=== PATIENT | female | born 1935 | race Caucasian/White ===

== ENCOUNTER 2016-10-21 07:39 | Day surgery (SDC) | payer MEDICARE, BC ==
[2016-10-21] MEDS ORDERED: Sodium Chloride 0.9% 10 ML Syringe FLUSH PRN (08:00)
[2016-10-21] MEDS ORDERED: Lactated Ringers 1,000 ML IV SCH (08:00)
[2016-10-21] MEDS ORDERED: fentaNYL 100 MCG/2 ML SDV ONE ×2 (08:38→09:04)
[2016-10-21] MEDS ORDERED: Midazolam 1 MG/ML 2 ML SDV ONE ×2 (08:39→09:04)
[2016-10-21] MEDS ORDERED: Propofol 200 MG/20 ML SDV ONE ×3 (08:40→09:04)
[2016-10-21] MEDS ORDERED: Lidocaine 2% 5 ML SDV ONE (09:04)
--- NOTE | 2016-10-21 09:06 | PCM.PN ---
- General Info Date of Service: 10/21/16 - Review of Systems Systems Review Comment:: 80-year-old female here for EGD and colonoscopy. She has a history of GERD and does chronically take omeprazole. She also has a history of colon polyps. It has been over 5 years since her last colonoscopy. She is medically stable to proceed today. I reviewed her recent history and physical and there is no significant change from that exam. I discussed the proposed upper and lower endoscopies with the patient. She understands the process and agrees to proceed accepting risks. - Patient Data Vitals - most recent: Last Vital Signs Temp 97.5 F 10/21/16 08:04 Pulse 75 10/21/16 08:04 Resp 20 10/21/16 08:04 BP 116/70 10/21/16 08:04 Pulse Ox 95 10/21/16 08:04 Weight - most recent: 50.349 kg Lab Results last 24 hrs: Laboratory Results - last 24 hr 10/21/16 Range/Units 08:31 POC Glucose 114 H (65-110) mg/dl Med Orders - Current: Current Medications Lactated Ringer's (Ringers, Lactated) 1,000 mls @ 70 mls/hr IV ASDIRECTED LINDA Last Admin: 10/21/16 08:33 Dose: 70 mls/hr Sodium Chloride (Saline Flush) 10 ml FLUSH ASDIRECTED PRN PRN Reason: Keep Vein Open Discontinued Medications Fentanyl (Sublimaze) Confirm Administered Dose 100 mcg .ROUTE .STK-MED ONE Stop: 10/21/16 08:39 Midazolam HCl (Versed 1 Mg/Ml) Confirm Administered Dose 2 mg .ROUTE .STK-MED ONE Stop: 10/21/16 08:40 Propofol (Diprivan 20 Ml) Confirm Administered Dose 200 mg .ROUTE .STK-MED ONE Stop: 10/21/16 08:41 Propofol (Diprivan 20 Ml) Confirm Administered Dose 200 mg .ROUTE .STK-MED ONE Stop: 10/21/16 08:41 - Problem List Review Problem List Initiated/Reviewed/Updated: Yes - Assessment Assessment:: GERD History of colon polyps - Plan Plan:: EGD and colonoscopy
--- NOTE | 2016-10-21 10:07 | PCM.OPNOTE ---
- General Post-Op/Procedure Note Date of Surgery/Procedure: 10/21/16 Operative Procedure(s): EGD with Biopsy and Colonoscopy with Polypectomy Findings: Mild reflux esophagitis at GE Jct Sigmoid Diverticulosis with tortuous colon Right colon polyps X2 Pre Op Diagnosis: GERD. History of Polyps Post-Op Diagnosis: Reflux Esophagitis. Diverticulosis. Colon Polyps Anesthesia Technique: [facility] [place] Primary Surgeon: Mayo Victoria Pathology: Biopsies of Gastric Antrum and Jct. Colon polyps X2 Output, Urine Amount: 0 EBL in mLs: 2 Complications: None Condition: Good
[2016-10-21 10:34] VITALS: BP 110/60
--- NOTE | 2016-10-21 15:06 | OR ---
Date of Procedure: 10/21/2016 PREOPERATIVE DIAGNOSES: 1. Gastroesophageal reflux disease. 2. History of colon polyps. POSTOPERATIVE DIAGNOSES: 1. Reflux esophagitis. 2. Diverticulosis. 3. Colon polyps. OPERATION PERFORMED: Esophagogastroduodenoscopy with biopsy and colonoscopy with polypectomy. INDICATIONS FOR SURGERY: This 80-year-old female has a known history of colon polyps and her last colonoscopy was over 5 years ago. She is referred for surveillance exam. She also has been having some symptoms of esophageal reflux. FINDINGS: On upper endoscopy, the patient has a mild degree of irritation at the GE junction with slightly irregularity of the Z-line. There was no exudate or ulceration seen. The gastric mucosa and duodenal mucosa otherwise appears normal as does the remainder of her esophagus. On colonoscopy, 2 polyps were noted on the right side of the colon. She has an 8 mm sessile polyp noted at the hepatic flexure and 1 cm sessile polyp noted at the mid transverse colon. The patient also has diverticulosis of the sigmoid colon, this does not appear acutely inflamed, however, there is significant tortuosity through this area. PROCEDURE IN DETAIL: The patient was taken to the operating room. She was given intravenous sedation. With her in the left lateral decubitus position, the esophagus is intubated via a mouth guard under direct visualization. The scope was then advanced through the esophagus, stomach, and into the duodenum where examination to the 3rd portion was performed. Full examination of the duodenum is carried out and the visualized portion appeared normal. The scope was withdrawn back into the stomach where full examination, including retroflexed examination of the fundus was performed. Biopsies of the antrum were taken to rule out H. pylori. The GE junction was then carefully examined and biopsies of the GE junction were taken because of the slight irregularity noted here and the patient's symptoms. The remainder of the esophagus was then examined as the scope was withdrawn and no other abnormalities of the esophagus were seen. Attention was then turned to colonoscopy. Digital rectal exam was performed showing no rectal masses. The Olympus colonoscope was inserted into the rectum. Retroflexed examination of the rectal canal was performed. The scope was then carefully advanced under direct visualization through the entire length of the colon until the cecum was reached. This did require some hand pressure at the end to safely reach the cecum. It was also somewhat difficult to traverse the sigmoid region because of the tortuosity of the colon and diverticular disease, but it appeared that the cecum was reached safely without any evidence of colon injury. The normal internal cecal anatomy was identified including the appendiceal orifice and ileocecal valve. The light was also noted to transilluminate the abdominal wall in the right lower quadrant. After examining the cecum, the scope was slowly withdrawn sequentially re-examining the colonic segments. In the hepatic flexure region, the above-described polyp was identified and it was removed with a cautery snare and retrieved. Upon further withdrawal of the scope, the other above-described polyp was noted in the transverse colon. This was removed piecemeal with cautery snare with a small amount of cautery being used to destroy any residual bit of the polyp that was not removed by the snare. It appeared that both polyps were completely removed with the procedure today. The scope was then slowly withdrawn and the remainder of the colon and rectum were carefully examined. After the examination had been completed and with no sign of any complicating process, the scope was removed and the patient was taken from the operating room in satisfactory condition. ESTIMATED BLOOD LOSS: Minimal. COMPLICATIONS: None. PROGNOSIS: Good. RUBÉN Victoria MD /[id number] MTDNichole
== END 2016-10-21 11:15 | disposition home or self-care (01) ==
LOC: LL.SDS 07:39
PROVIDERS: ATTEND Surgery
PROC: 0DB48ZZ Excision of Esophagogastric Junction, Via Natural or Artificial Opening Endoscopic (ICD-10-PCS; principal; 2016-10-21)
PROC: 0DBL8ZZ Excision of Transverse Colon, Via Natural or Artificial Opening Endoscopic (ICD-10-PCS; 2016-10-21)
PROC: 0DBK8ZZ Excision of Ascending Colon, Via Natural or Artificial Opening Endoscopic (ICD-10-PCS; 2016-10-21)
DX: K21.0 Gastro-esophageal reflux disease with esophagitis (principal); D12.2 Benign neoplasm of ascending colon; D12.3 Benign neoplasm of transverse colon; K57.30 Diverticulosis of large intestine without perforation or abscess without bleeding; Z80.0 Family history of malignant neoplasm of digestive organs; I10 Essential (primary) hypertension; E11.9 Type 2 diabetes mellitus without complications; E11.40 Type 2 diabetes mellitus with diabetic neuropathy, unspecified; K86.1 Other chronic pancreatitis; E03.9 Hypothyroidism, unspecified; Z79.899 Other long term (current) drug therapy
CPT/HCPCS: 43239; 45385; 82962; J2250; J2704; J3010; J7120; 00740; 88305

== ENCOUNTER 2018-09-03 10:05 | Emergency (ER) | payer MEDICARE, BC ==
[2018-09-03 10:20] VITALS: BP 163/80
[2018-09-03 10:51] LABS: CHLORIDE,CL 100 mmol/L (98-107); SODIUM,NA 134 mmol/L (136-145)
[2018-09-03] MEDS ORDERED: Ondansetron 4 MG Tab.DIS PO ONE (11:06)
--- NOTE | 2018-09-03 12:08 | EDM.PDOC ---
ED HPI GENERAL MEDICAL PROBLEM - General Chief Complaint: General Stated Complaint: Abdominal Pain, Hx Pancreatitis, Dx Shingles Time Seen by Provider: 09/03/18 10:47 Source of Information: Reports: Patient History Limitations: Reports: No Limitations - History of Present Illness INITIAL COMMENTS - FREE TEXT/NARRATIVE: Patient comes to ER this morning due to abdominal pain. Located near epigastric area. Threw up her antiviral medication this morning. Not wanting to eat or drink much. Diagnosed with shingles recently. Broke out on left back. Says that it feels like pancreatitis. Has had multiple episodes of pancreatitis in past. Had stents placed in pancreas by [place] "years ago". No fevers/chills. No bowel changes. No other acute changes reported by patient. Middle Abdomen Pain Score (Numeric/FACES): 9 - Related Data Allergies Allergy/AdvReac Type Severity Reaction Status Date / Time atorvastatin calcium Allergy muscle pain Verified 10/21/16 08:20 [From Lipitor] doxycycline Allergy Abdominal Verified 10/21/16 08:20 Pain lisinopril Allergy Anaphylactic Verified 10/21/16 08:20 Shock Penicillins Allergy Anaphylactic Verified 10/21/16 08:20 Shock Home Meds: Home Meds Aspirin [Halfprin] 81 mg PO DAILY 08/26/13 [History] Cholecalciferol (Vitamin D3) [Vitamin D3] 1,000 unit PO DAILY@1800 08/26/13 [ History] Levothyroxine [Synthroid] 50 mcg PO ACBRK 08/26/13 [History] Multivit-Min/FA/Lycopene/Lut [Centrum Silver] 1 each PO DAILY@1200 08/26/13 [ History] Omeprazole 20 mg PO DAILY 08/26/13 [History] Rosuvastatin [Crestor] 10 mg PO BEDTIME 08/26/13 [History] Acetaminophen 1,000 mg PO Q6H PRN 12/16/15 [History] Desonide [Desowen] 1 dose TOP ASDIRECTED PRN 12/16/15 [History] Ubidecarenone [Co Q-10] 100 mg PO DAILY@1200 12/16/15 [History] metFORMIN HCl [Metformin HCl ER] 750 mg PO BID 12/16/15 [History] Lipase/Protease/Amylase [[place] DRUMMOND 3,000 Unit] 12,000 unit PO TID 10/20/16 [ History] Magnesium 250 mg PO DAILY@1200 10/20/16 [History] Phenyleph/Mineral Oil/Petrolat [Preparation H Ointment] 1 applic RECTAL ASDIRECTED PRN 10/20/16 [History] Lysine 500 mg PO ASDIRECTED PRN 10/21/16 [History] Naproxen Sodium [Aleve] 1 tab PO BID PRN 10/21/16 [History] Hydrocodone/Acetaminophen [Hydrocodon-Acetaminophen 5-325] 1 each PO Q6HR PRN [History] Losartan Potassium 25 mg PO DAILY 09/03/18 [History] valACYclovir HCl [valACYclovir] 1 g PO TID 09/03/18 [History] valACYclovir [Valtrex] 1 g PO ASDIRECTED PRN 09/03/18 [History] Past Medical History HEENT History: Reports: Cataract Other HEENT History: Dry eye syndrome Cardiovascular History: Reports: High Cholesterol, Hypertension, Other (See Below) Other Cardiovascular History: mitral valve insufficiency and aortic valve stenosis, 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 Respiratory History: Reports: None Other Respiratory History: 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 X ray Gastrointestinal History: Reports: Pancreatitis Other Gastrointestinal History: pancreatic stent x 1 Genitourinary History: Reports: Urinary Incontinence Other Genitourinary History: stress incontinence 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: Fibroids, , Prolapsed Uterus Other [employer]YSICIST [employer] History: menopause in her early 50s Musculoskeletal History: Reports: Osteoarthritis Other Musculoskeletal History: Hyperuricemia Neurological History: Reports: Neuropathy, Diabetic Psychiatric History: Reports: Addiction, Anxiety, Depression, Panic Attack Endocrine/Metabolic History: Reports: Diabetes, Type II, Hypothyroidism, Osteopenia Hematologic History: Reports: None Immunologic History: Reports: None Oncologic (Cancer) History: Reports: Thyroid Other Oncologic History: 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 pylori as above - Past Surgical History Head Surgeries/Procedures: Reports: None HEENT Surgical History: Reports: Adenoidectomy, Cataract Surgery, Tonsillectomy Other HEENT Surgeries/Procedures: cataract removal with implant right eye 1996/ left eye 2006 Female Surgical History: Reports: Breast Biopsy, Other (See Below) Endocrine Surgical History: Reports: Thyroidectomy Other Endocrine Surgeries/Procedures: subtotal right thyroidectomy in 1959 Oncologic Surgical History: Reports: Lumpectomy Other Oncologic Surgeries/Procedures: right breast lumpectomy - Past Imaging History Past Imaging History: Reports: Cardiac Echo, CAT Scan, DEXA Scan, Mammogram Social & Family History - Family History Cardiac: Reports: CAD, Heart Failure, High Cholesterol, Hypertension, PR, Other (See Below) Other Cardiac Family History: Father with initial PR in his 60s with fatal PR and CHF at age 80, 2 brothers and 2 sisters with hyperlipidemia, hypertension in mother, 2 sisters, and 2 brothers GI: Reports: Other (See Below) Other GI Family History: Son with hepatitis C : Reports: Renal Disease/Insufficiency, Other (See Below) Other Family History: Mother with fatal renal failure at age 68 Musculoskeletal: Reports: RA, Other (See Below) Other Musculoskeletal Family History: Terminal aunt with rheumatoid arthritis Neurological: Reports: CVA, Other (See Below) Other Neurological Family History: Mother with history of recurrent CVAs Endocrine/Metabolic: Reports: Diabetes, type II, Other (See Below) Other Endocrine/Metabolic Family History: Brother and paternal grandparents with diabetes mellitus Oncologic: Reports: Esophageal, Leukemia, Other (See Below) Other Oncologic Family History: 2 brothers with fatal esophageal cancer in her 70s possibly secondary to tobacco abuse, father with leukemia at age 80 - Tobacco Use Smoking Status *Q: Never Smoker - Caffeine Use Caffeine Use: Reports: Coffee - Recreational Drug Use Recreational Drug Use: No - Living Situation & Occupation Living situation: Reports: Occupation: Retired ED ROS GENERAL - Review of Systems Review Of Systems: See Below Constitutional: Reports: Decreased Appetite. Denies: Fever, Chills, Malaise, Weakness, Night Sweats, Diaphoresis, Weight Loss HEENT: Reports: No Symptoms, Glasses Respiratory: Reports: No Symptoms. Denies: Shortness of Breath, Pleuritic Chest Pain, Cough Cardiovascular: Reports: No Symptoms. Denies: Chest Pain, Lightheadedness, Palpitations GI/Abdominal: Reports: Abdominal Pain, Nausea, Vomiting. Denies: Black Stool, Bloody Stool, Constipation, Diarrhea : Reports: No Symptoms Musculoskeletal: Reports: No Symptoms Skin: Reports: No Symptoms Neurological: Reports: No Symptoms Psychiatric: Reports: No Symptoms Hematologic/Lymphatic: Reports: No Symptoms ED EXAM, GENERAL - Physical Exam Exam: See Below Exam Limited By: No Limitations General Appearance: Alert, WD/WN, No Apparent Distress Eye Exam: Bilateral Eye: EOMI, PERRL Ears: Normal External Exam Nose: No: Nasal Deformity, Nasal Swelling, Nasal Drainage Throat/Mouth: Normal Lips, Normal Voice, No Airway Compromise Head: Atraumatic, Normocephalic Neck: Supple, Non-Tender, Full Range of Motion Respiratory/Chest: Lungs Clear, No Accessory Muscle Use, Chest Non-Tender Cardiovascular: Regular Rate, Rhythm, Systolic Murmur Peripheral Pulses: 2+: Radial (L), Radial (R) GI/Abdominal: Normal Bowel Sounds, Soft, No Distention, Tender (epigastrum ) (Female) Exam: Deferred Rectal (Female) Exam: Deferred Back Exam: No: CVA Tenderness (L), CVA Tenderness (R), Muscle Spasm, Paraspinal Tenderness, Vertebral Tenderness Extremities: Normal Inspection, Normal Range of Motion, Non-Tender, No Pedal Edema, Normal Capillary Refill Neurological: Alert, Oriented, No Motor/Sensory Deficits Psychiatric: Normal Affect, Normal Mood Skin Exam: Warm, Dry, Intact, Normal Color, Zoster-Like Rash (left back) Course - Vital Signs Last Recorded V/S: Last Vital Signs Temp 36.4 C 09/03/18 10:05 Pulse 83 09/03/18 10:05 Resp 16 09/03/18 10:05 BP 163/80 H 09/03/18 10:05 Pulse Ox 98 09/03/18 10:05 - Orders/Labs/Meds Orders: Active Orders 24 hr Category Date Time Status Abdomen 2V AP Flat Upright [CR] Stat Exams 09/03/18 10:17 Taken Labs: Laboratory Tests 09/03/18 09/03/18 09/03/18 Range/Units 10:20 10:20 11:30 WBC 8.2 (4.0-10.2) K/uL RBC 4.51 (3.77-5.09) M/uL Hgb 14.1 (11.7-15.5) g/dL Hct 41.7 (34.0-46.0) % MCV 92.5 (84.0-98.0) fL MCH 31.3 (28.2-33.3) pg MCHC 33.8 (31.7-36.0) g/dL RDW 13.4 (11.2-14.1) % Plt Count 86 L (150-350) K/uL Neut % (Auto) 83.0 H (45.0-80.0) % Lymph % (Auto) 10.6 (10.0-50.0) % [place] % (Auto) 6.1 (2.0-14.0) % Eos % (Auto) 0.2 (0.0-5.0) % Baso % (Auto) 0.1 (0.0-2.0) % Neut # (Auto) 6.76 (1.40-7.00) K/uL Lymph # (Auto) 0.86 (0.50-3.50) K/uL [place] # (Auto) 0.50 (0.00-1.00) K/uL Eos # (Auto) 0.02 (0.00-0.50) K/uL Baso # (Auto) 0.01 (0.00-0.20) K/uL Sodium 134 L (136-145) mmol/L Potassium 4.3 (3.5-5.1) mmol/L Chloride 100 (98-107) mmol/L Carbon Dioxide 21.8 (21.0-32.0) mmol/L BUN 21 H (7-18) mg/dL Creatinine 0.61 (0.51-1.17) mg/dL Est Cr Clr Drug Dosing 49.31 mL/min Estimated GFR (MDRD) > 60 mL/min Glucose 169 H (74-106) mg/dL Calcium 10.2 H (8.5-10.1) mg/dL Total Bilirubin 0.9 (0.2-1.0) mg/dL AST 32 (15-37) U/L ALT 36 (12-78) U/L Alkaline Phosphatase 109 (46-116) IU/L Total Protein 7.2 (6.4-8.2) g/dL Albumin 4.4 (3.4-5.0) g/dL Amylase 215 H (25-115) U/L Lipase 3114 H (73-393) U/L Specimen Type Urinblad Urine Color Yellow Urine Appearance Clear Urine pH 5.0 (5.0-9.0) Ur Specific [place] 1.025 (1.005-1.030) Urine Protein Negative (NEGATIVE) mg/dL Urine Glucose (UA) Negative (NEGATIVE) mg/dL Urine Ketones 15 H (NEGATIVE) mg/dL Urine Occult Blood Trace-intact H (NEGATIVE) Urine Nitrite Negative (NEGATIVE) Urine Bilirubin Negative (NEGATIVE) Urine Urobilinogen 0.2 (0.2-1.0) E.U./dL Ur Leukocyte Esterase Negative (NEGATIVE) Urine RBC 5-10 H /HPF Urine WBC 0-5 /HPF Ur Epithelial Cells Few /LPF Urine Bacteria Rare (NONE TO FEW) /HPF Hyaline Casts Rare H (NEGATIVE) /LPF Urine Mucus Rare H (NEGATIVE) /LPF Meds: Medications Discontinued Medications Generic Name Dose Route Start Last Admin Trade Name Freq PRN Reason Stop Dose Admin Ondansetron HCl 4 mg 09/03/18 11:06 09/03/18 11:26 Zofran Odt PO 09/03/18 11:07 4 mg ONETIME ONE Administration - Re-Assessments/Exams Free Text/Narrative Re-Assessment/Exam: Labs ordered. WBC normal. UA did not reflect UTI. Chem confirmed elevated amylase and lipase. Zofran given for nausea. Patient wished to go to [facility] in [place] when inpatient admission/IV fluids/ bowel rest discussed. Call placed to [facility]. Discussed patient with , hospitalist. She accepted the patient for transfer but wished to have the patient present first to the ER. Patient wanted to have her son drive her to [facility] via private vehicle. No additional medications given prior to her leaving with her son to go to [facility]. She was to remain NPO except for ice chips. Departure - Departure Time of Disposition: 12:06 Disposition: DC/Tfer to Acute Hospital 02 Condition: Good Clinical Impression: Pancreatitis Qualifiers: Chronicity: acute Pancreatitis type: unspecified pancreatitis type Acute pancreatitis complication: unspecified Qualified Code(s): K85.90 - Acute pancreatitis without necrosis or infection, unspecified - Discharge Information *PRESCRIPTION DRUG MONITORING PROGRAM REVIEWED*: Not Applicable *COPY OF PRESCRIPTION DRUG MONITORING REPORT IN PATIENT TAISHA: Not Applicable Referrals: Dudley Gomez PA [Primary Care Provider] - Forms: ED Department Discharge Additional Instructions: Go ahead and drive directly to [place]. They are expecting you to go first to the [facility] ER prior to admission. Do not eat/drink anything other than ice chips. - My Orders Last 24 Hours: My Active Orders 09/03/18 10:17 Abdomen 2V AP Flat Upright [CR] Stat - Assessment/Plan Last 24 Hours: My Active Orders 09/03/18 10:17 Abdomen 2V AP Flat Upright [CR] Stat
== END 2018-09-03 12:15 ==
LOC: LL.ED 10:05
DX: K85.90 Acute pancreatitis without necrosis or infection, unspecified (principal); E78.00 Pure hypercholesterolemia, unspecified; I10 Essential (primary) hypertension; J44.9 Chronic obstructive pulmonary disease, unspecified; E11.40 Type 2 diabetes mellitus with diabetic neuropathy, unspecified; F41.9 Anxiety disorder, unspecified; F32.9 Major depressive disorder, single episode, unspecified; E11.9 Type 2 diabetes mellitus without complications; E03.9 Hypothyroidism, unspecified; Z88.8 Allergy status to other drugs, medicaments and biological substances; Z88.0 Allergy status to penicillin; Z79.82 Long term (current) use of aspirin; Z79.899 Other long term (current) drug therapy; Z79.84 Long term (current) use of oral hypoglycemic drugs
CPT/HCPCS: 36415; 74019; 80053; 81001; 82150; 83690; 85025; 99285-25; A9270-GY

== ENCOUNTER 2019-07-14 11:08 | Inpatient (IN) | payer MEDICARE, BC ==
--- NOTE | 2019-07-14 11:48 | EDM.PDOC ---
ED HPI GENERAL MEDICAL PROBLEM - General Chief Complaint: Abdominal Pain Stated Complaint: abdominal pain Time Seen by Provider: 07/14/19 11:22 Source of Information: Reports: Patient, Family History Limitations: Reports: No Limitations - History of Present Illness INITIAL COMMENTS - FREE TEXT/NARRATIVE: Patient comes to ER with complaint of generalized abdominal pain, worse in epigastric area, that started suddenly this morning after she bent over. Some radiation to the back. No nausea/emesis. No fevers/chills. Had some loose stools last night but sometimes has issues with that due to Metformin. No changes in urination. No recent illnesses/URI/cough/respiratory or chest changes. No other changes reported. Does not seem to get better/worse with eating or drinking or positional changes. Did have toast and coffee this morning. History of pancreatitis/pseudocyst. Had drain placed by [facility] which helped with frequency of attacks. Abdominal Pain Score (Numeric/FACES): 10 - Related Data Allergies Allergy/AdvReac Type Severity Reaction Status Date / Time atorvastatin calcium Allergy muscle pain Verified 07/14/19 11:12 [From Lipitor] doxycycline Allergy Abdominal Verified 07/14/19 11:12 Pain lisinopril Allergy Anaphylactic Verified 07/14/19 11:12 Shock Penicillins Allergy Anaphylactic Verified 07/14/19 11:12 Shock Home Meds: Home Meds Aspirin [Halfprin] 81 mg PO DAILY 08/26/13 [History] Cholecalciferol (Vitamin D3) [Vitamin D3] 1,000 unit PO DAILY@1800 08/26/13 [ History] Levothyroxine [Synthroid] 50 mcg PO ACBRK 08/26/13 [History] Multivit-Min/FA/Lycopene/Lut [Centrum Silver] 1 each PO DAILY@1200 08/26/13 [ History] Omeprazole 20 mg PO DAILY 08/26/13 [History] Rosuvastatin [Crestor] 10 mg PO BEDTIME 08/26/13 [History] Acetaminophen 1,000 mg PO Q6H PRN 12/16/15 [History] Ubidecarenone [Co Q-10] 100 mg PO DAILY@1200 12/16/15 [History] metFORMIN HCl [Metformin HCl ER] 750 mg PO BID 12/16/15 [History] Lipase/Protease/Amylase [[place] DRUMMOND 3,000 Unit] 12,000 unit PO TID 05/24/17 [ History] Magnesium 500 mg PO DAILY@1200 10/20/16 [History] Phenyleph/Mineral Oil/Petrolat [Preparation H Ointment] 1 applic RECTAL ASDIRECTED PRN 10/20/16 [History] Naproxen Sodium [Aleve] 1 tab PO BID PRN 10/21/16 [History] Losartan Potassium 50 mg PO DAILY 09/03/18 [History] Past Medical History HEENT History: Reports: Cataract Other HEENT History: Dry eye syndrome Cardiovascular History: Reports: High Cholesterol, Hypertension, Other (See Below) Other Cardiovascular History: mitral valve insufficiency and aortic valve stenosis, 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 Respiratory History: Reports: None Other Respiratory History: 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 X ray Gastrointestinal History: Reports: Pancreatitis Other Gastrointestinal History: pancreatic stent x 1 Genitourinary History: Reports: Urinary Incontinence Other Genitourinary History: stress incontinence COMMISSARY HELPER History: Reports: Fibroids, , Prolapsed Uterus Other COMMISSARY HELPER History: menopause in her early 50s Musculoskeletal History: Reports: Osteoarthritis Other Musculoskeletal History: Hyperuricemia Neurological History: Reports: Neuropathy, Diabetic Psychiatric History: Reports: Addiction, Anxiety, Depression, Panic Attack Endocrine/Metabolic History: Reports: Diabetes, Type II, Hypothyroidism, Osteopenia Hematologic History: Reports: None Immunologic History: Reports: None Oncologic (Cancer) History: Reports: Thyroid Other Oncologic History: 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 pylori as above - Past Surgical History Head Surgeries/Procedures: Reports: None HEENT Surgical History: Reports: Adenoidectomy, Cataract Surgery, Tonsillectomy Other HEENT Surgeries/Procedures: cataract removal with implant right eye 1996/ left eye 2006 Female Surgical History: Reports: Breast Biopsy, Other (See Below) Endocrine Surgical History: Reports: Thyroidectomy Other Endocrine Surgeries/Procedures: subtotal right thyroidectomy in 1958 Oncologic Surgical History: Reports: Lumpectomy Other Oncologic Surgeries/Procedures: right breast lumpectomy - Past Imaging History Past Imaging History: Reports: Cardiac Echo, CAT Scan, DEXA Scan, Mammogram Social & Family History - Family History Cardiac: Reports: CAD, Heart Failure, High Cholesterol, Hypertension, DE, Other (See Below) Other Cardiac Family History: Father with initial DE in his 60s with fatal DE and CHF at age 80, 2 brothers and 2 sisters with hyperlipidemia, hypertension in mother, 2 sisters, and 2 brothers GI: Reports: Other (See Below) Other GI Family History: Son with hepatitis C : Reports: Renal Disease/Insufficiency, Other (See Below) Other Family History: Mother with fatal renal failure at age 68 Musculoskeletal: Reports: RA, Other (See Below) Other Musculoskeletal Family History: Terminal aunt with rheumatoid arthritis Neurological: Reports: CVA, Other (See Below) Other Neurological Family History: Mother with history of recurrent CVAs Endocrine/Metabolic: Reports: Diabetes, type II, Other (See Below) Other Endocrine/Metabolic Family History: Brother and paternal grandparents with diabetes mellitus Oncologic: Reports: Esophageal, Leukemia, Other (See Below) Other Oncologic Family History: 2 brothers with fatal esophageal cancer in her 70s possibly secondary to tobacco abuse, father with leukemia at age 80 - Caffeine Use Caffeine Use: Reports: Coffee - Living Situation & Occupation Living situation: Reports: Occupation: Retired ED ROS GENERAL - Review of Systems Review Of Systems: Comprehensive ROS is negative, except as noted in HPI. ED EXAM, GENERAL - Physical Exam Exam: See Below Exam Limited By: No Limitations General Appearance: Alert, WD/WN, No Apparent Distress, Other (no acute distress but periodically holds abdomen like she has some discomfort) Eye Exam: Bilateral Eye: EOMI, PERRL Ears: Hearing Grossly Normal Nose: No: Nasal Deformity, Nasal Swelling, Nasal Drainage Throat/Mouth: Normal Lips, Normal Voice, No Airway Compromise Head: Atraumatic, Normocephalic Neck: Supple, Non-Tender Respiratory/Chest: No Respiratory Distress, Lungs Clear, Normal Breath Sounds, No Accessory Muscle Use, Chest Non-Tender Cardiovascular: Regular Rate, Rhythm, No Edema, Systolic Murmur GI/Abdominal: No Distention, Tender (diffuse tenderness all quadrants, worse above umbilicus and RUQ/epigastric), Abnormal Bowel Sounds (decreased throughout ). No: Guarding, Rigid, Rebound (Female) Exam: Deferred Rectal (Female) Exam: Deferred Back Exam: Other (diffused discomfort with percussion both left and right lower back) Extremities: Non-Tender, No Pedal Edema, Normal Capillary Refill Neurological: Alert, Oriented, Normal Cognition, No Motor/Sensory Deficits Psychiatric: Normal Affect, Normal Mood Skin Exam: Warm, Dry, Intact, Normal Color Course - Vital Signs Last Recorded V/S: Last Vital Signs Temp 36 C L 07/14/19 11:08 Pulse 96 07/14/19 11:08 Resp 16 07/14/19 11:08 BP 154/61 H 07/14/19 11:08 Pulse Ox 98 07/14/19 11:08 - Orders/Labs/Meds Orders: Active Orders 24 hr Category Date Time Status Abdomen 2V AP Flat Upright [CR] Stat Exams 07/14/19 12:06 Ordered UA W/MICROSCOPIC [URIN] Stat Lab 07/14/19 11:36 Ordered Sodium Chloride 0.9% [Saline Flush] Med 07/14/19 12:23 Ordered 10 ml FLUSH ASDIRECTED PRN Saline Lock Insert [OM.PC] Routine Oth 07/14/19 12:23 Ordered Medication Orders Sodium Chloride (Saline Flush) 10 ml FLUSH ASDIRECTED PRN PRN Reason: Keep Vein Open Labs: Laboratory Tests 07/14/19 07/14/19 07/14/19 Range/Units 11:45 11:45 11:45 WBC 9.9 (4.0-10.2) K/uL RBC 4.24 (3.77-5.09) M/uL Hgb 13.1 (11.7-15.5) g/dL Hct 40.6 (34.0-46.0) % MCV 95.8 D (84.0-98.0) fL MCH 30.9 (28.2-33.3) pg MCHC 32.3 (31.7-36.0) g/dL RDW 14.0 (11.2-14.1) % Plt Count 75 L (150-350) K/uL Neut % (Auto) 81.4 H (45.0-80.0) % Lymph % (Auto) 11.3 (10.0-50.0) % [place] % (Auto) 6.5 (2.0-14.0) % Eos % (Auto) 0.6 (0.0-5.0) % Baso % (Auto) 0.2 (0.0-2.0) % Neut # (Auto) 8.08 H (1.40-7.00) K/uL Lymph # (Auto) 1.12 (0.50-3.50) K/uL [place] # (Auto) 0.64 (0.00-1.00) K/uL Eos # (Auto) 0.06 (0.00-0.50) K/uL Baso # (Auto) 0.02 (0.00-0.20) K/uL Sodium 142 (136-145) mmol/L Potassium 4.3 (3.5-5.1) mmol/L Chloride 106 (98-107) mmol/L Carbon Dioxide 24.7 (21.0-32.0) mmol/L BUN (7-18) mg/dL Creatinine 0.62 (0.51-1.17) mg/dL Est Cr Clr Drug Dosing 47.65 mL/min Estimated GFR (MDRD) > 60 mL/min Glucose 153 H (74-106) mg/dL Lactic Acid 1.7 (0.4-2.0) mmol/L Calcium 9.9 (8.5-10.1) mg/dL Magnesium 1.3 L (1.8-2.4) mg/dL Total Bilirubin 0.9 (0.2-1.0) mg/dL AST 27 (15-37) U/L ALT 28 (12-78) U/L Alkaline Phosphatase 119 H (46-116) IU/L Total Protein 6.6 (6.4-8.2) g/dL Albumin 4.0 (3.4-5.0) g/dL Amylase 418 H (25-115) U/L Lipase 3934 H (73-393) U/L Meds: Medications Generic Name Dose Route Start Last Admin Trade Name Freq PRN Reason Stop Dose Admin Sodium Chloride 10 ml 07/14/19 12:23 Saline Flush FLUSH ASDIRECTED PRN Keep Vein Open - Radiology Interpretation Free Text/Narrative:: abdominal films overall unremarkable for acute changes - Re-Assessments/Exams Free Text/Narrative Re-Assessment/Exam: WBC normal. Chem showed elevation of amylase at 418 and lipase at 3934 Magnesium low at 1.3 Glu 153 Plan at this time is to admit patient to the floor for treatment of pancreatitis and hypomag. Departure - Departure Time of Disposition: 12:48 Disposition: Admitted As Inpatient 64 Condition: Good Clinical Impression: Pancreatitis Qualifiers: Chronicity: acute Pancreatitis type: unspecified pancreatitis type Acute pancreatitis complication: unspecified Qualified Code(s): K85.90 - Acute pancreatitis without necrosis or infection, unspecified - Discharge Information *PRESCRIPTION DRUG MONITORING PROGRAM REVIEWED*: Not Applicable *COPY OF PRESCRIPTION DRUG MONITORING REPORT IN PATIENT TAISHA: Not Applicable Forms: ED Department Discharge Sepsis Event Note - Evaluation Sepsis Screening Result: No Definite Risk - Focused Exam Vital Signs: Vital Signs Temp Pulse Resp BP Pulse Ox 07/14/19 11:08 36 C L 96 16 154/61 H 98 Date Exam was Performed: 07/14/19 Time Exam was Performed: 12:40 - Problem List & Annotations (1) Pancreatitis SNOMED Code(s): 80644463 Code(s): K85.9 - ACUTE PANCREATITIS, UNSPECIFIED * DO NOT USE * Status: Acute Priority: High Current Visit: Yes Onset Date: ~12/16/15 Annotation /Comment:: Patient has long history of intermittent pancreatitis. Afebrile. Normal WBC. She would like to stay in [place] for treatment. Will initiate bowel rest/IV fluids. Schedule US for Tuesday. Consider transfer to [facility] if there is worsening of patient's condition. Qualifiers: Chronicity: acute Pancreatitis type: unspecified pancreatitis type Acute pancreatitis complication: unspecified Qualified Code(s): K85.90 - Acute pancreatitis without necrosis or infection, unspecified (2) Hypomagnesemia SNOMED Code(s): 158421348 Code(s): E83.42 - HYPOMAGNESEMIA Status: Chronic Priority: Medium Current Visit: Yes Annotation/Comment:: Patient is on oral supplementation but level is significantly low today. Initiate IV supplementation and recheck level tomorrow. (3) Hypothyroid SNOMED Code(s): 26466722 Code(s): E03.9 - HYPOTHYROIDISM, UNSPECIFIED Status: Chronic Priority: Low Current Visit: No Annotation/Comment:: Under therapy and followed by primary clinic Qualifiers: Hypothyroidism type: unspecified Qualified Code(s): E03.9 - Hypothyroidism , unspecified (4) Heart murmur, systolic SNOMED Code(s): 35257061 Code(s): I38 - ENDOCARDITIS, VALVE UNSPECIFIED Status: Chronic Priority: Low Current Visit: No Annotation/Comment:: History of chronic systolic ejection murmur. (5) Hypertension SNOMED Code(s): 46883092 Code(s): I10 - ESSENTIAL (PRIMARY) HYPERTENSION Status: Chronic Priority : Low Current Visit: No Annotation/Comment:: Observe Qualifiers: Hypertension type: essential hypertension Qualified Code(s): I10 - Essential (primary) hypertension (6) Dyslipidemia SNOMED Code(s): 048566135 Code(s): E78.5 - HYPERLIPIDEMIA, UNSPECIFIED Status: Chronic Priority: Low Current Visit: No Annotation/Comment:: Under therapy and followed by primary provider. (7) Osteoarthritis SNOMED Code(s): 325516008 Code(s): M19.90 - UNSPECIFIED OSTEOARTHRITIS, UNSPECIFIED SITE Status: Chronic Priority: Low Current Visit: No Annotation/Comment:: Stable by history Qualifiers: Osteoarthritis location: multiple joints Osteoarthritis type: primary Qualified Code(s): M15.0 - Primary generalized (osteo)arthritis (8) Heart disease SNOMED Code(s): 46124741 Code(s): I51.9 - HEART DISEASE, UNSPECIFIED Status: Chronic Priority: Low Current Visit: No Annotation/Comment:: Right bundle branch block, diastolic dysfunction, valvular disease per history. 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 insulin use: without skilled nursing use Diabetes mellitus complication status: without complication Qualified Code(s): E11.9 - Type 2 diabetes mellitus without complications - Problem List Review Problem List Initiated/Reviewed/Updated: Yes - My Orders Last 24 Hours: My Active Orders 07/14/19 11:36 UA W/MICROSCOPIC [URIN] Stat 07/14/19 12:06 Abdomen 2V AP Flat Upright [CR] Stat 07/14/19 12:23 Sodium Chloride 0.9% [Saline Flush] 10 ml FLUSH ASDIRECTED PRN Saline Lock Insert [OM.PC] Routine - Assessment/Plan Admission H&P: Please use this note as an admission H&P Last 24 Hours: My Active Orders 07/14/19 11:36 UA W/MICROSCOPIC [URIN] Stat 07/14/19 12:06 Abdomen 2V AP Flat Upright [CR] Stat 07/14/19 12:23 Sodium Chloride 0.9% [Saline Flush] 10 ml FLUSH ASDIRECTED PRN Saline Lock Insert [OM.PC] Routine Assessment:: as above Plan: as above. Anticipate 3-4 day stay depending on clinic course of pancreatitis, with possible transfer to [place] if symptoms significantly worsen.
[2019-07-14 12:12] LABS: CHLORIDE,CL 106 mmol/L (98-107); SODIUM,NA 142 mmol/L (136-145)
[2019-07-14] MEDS ORDERED: Ondansetron 4 MG/2 ML SDV IVPUSH PRN (13:09)
[2019-07-14] MEDS ORDERED: Bisacodyl 5 MG Tab PO PRN (13:09)
[2019-07-14] MEDS: Sodium Chloride 0.9% 10 ML Syringe FLUSH PRN ×2 (14:19→15:22)
[2019-07-14] MEDS: Pantoprazole 40 MG Vial IVPUSH SCH (14:19)
[2019-07-14] MEDS: Morphine 2 MG/ML Syringe IVPUSH PRN (14:26)
[2019-07-14] MEDS: Lactated Ringers 1,000 ML IV SCH (15:21)
[2019-07-14] MEDS: metFORMIN 500 MG Tab PO SCH (17:59)
[2019-07-14] MEDS ORDERED: METFORMIN HCL 750 MG PO SCH (18:00)
[2019-07-14] MEDS: Rosuvastatin 10 MG Tab PO SCH (19:22)
[2019-07-15] MEDS: Lactated Ringers 1,000 ML IV SCH ×2 (02:14→11:44)
[2019-07-15] MEDS: metFORMIN 500 MG Tab PO SCH ×3 (07:25→17:07)
[2019-07-15] MEDS: Losartan 50 MG Tab PO SCH (07:25)
[2019-07-15] MEDS: Aspirin 81 MG Tab.EC PO SCH (07:25)
[2019-07-15] MEDS: Levothyroxine 50 MCG Tab PO SCH (07:25)
[2019-07-15 07:40] LABS: CHLORIDE,CL 108 mmol/L (98-107); SODIUM,NA 141 mmol/L (136-145)
[2019-07-15] MEDS: Pantoprazole 40 MG Vial IVPUSH SCH (09:27)
[2019-07-15] MEDS: Sodium Chloride 0.9% 10 ML Syringe FLUSH PRN (09:27)
[2019-07-15] MEDS ORDERED: Enoxaparin 40 MG/0.4 ML Syringe SUBCUT SCH (12:00)
--- NOTE | 2019-07-15 12:00 | PCM.PN ---
- General Info Date of Service: 07/15/19 Admission Dx/Problem (Free Text): Patient admitted for treatment of pancreatitis/abdominal pain Subjective Update: Pain has improved to around a level 2-3 and patient is happy with achieving that level. Overall is feeling better. Tolerating ice chips/sips water. Functional Status: Reports: Pain Controlled, Tolerating Diet (ice chips/water/ clear liquids), Ambulating, Urinating. Denies: New Symptoms - Review of Systems General: Reports: Appetite (poor). Denies: Fever, Weakness, Chills, Night Sweats HEENT: Reports: No Symptoms, Glasses Pulmonary: Denies: Shortness of Breath, Pleuritic Chest Pain, Cough, Sputum, Hemoptysis, Wheezing Cardiovascular: Denies: Chest Pain, Palpitations, Dyspnea on Exertion, Orthopnea , Edema, Lightheadedness Gastrointestinal: Reports: Abdominal Pain, Decreased Appetite. Denies: Constipation, Diarrhea, Difficulty Swallowing, Hematochezia, Nausea, Vomiting Genitourinary: Denies: Dysuria, Frequency, Burning, Pain, Urgency, Hematuria, Flank Pain Musculoskeletal: Reports: Other (no acute changes from baseline) Skin: Reports: No Symptoms Neurological: Reports: No Symptoms Psychiatric: Reports: No Symptoms - Patient Data Vitals - Most Recent: Last Vital Signs Temp 37.4 C 07/15/19 11:49 Pulse 88 07/15/19 11:49 Resp 18 07/15/19 11:49 BP 135/65 07/15/19 11:49 Pulse Ox 97 07/15/19 11:49 Weight - Most Recent: 49.895 kg I&O - Last 24 Hours: Intake & Output 07/14/19 07/15/19 07/15/19 22:59 06:59 14:59 Intake Total 90 1750 Output Total 100 500 600 Balance -10 -500 1150 Lab Results Last 24 Hours: Laboratory Results - last 24 hr 07/14/19 07/14/19 07/14/19 Range/Units 11:45 11:45 11:45 WBC 9.9 (4.0-10.2) K/uL RBC 4.24 (3.77-5.09) M/uL Hgb 13.1 (11.7-15.5) g/dL Hct 40.6 (34.0-46.0) % MCV 95.8 D (84.0-98.0) fL MCH 30.9 (28.2-33.3) pg MCHC 32.3 (31.7-36.0) g/dL RDW 14.0 (11.2-14.1) % Plt Count 75 L (150-350) K/uL Neut % (Auto) 81.4 H (45.0-80.0) % Lymph % (Auto) 11.3 (10.0-50.0) % [place] % (Auto) 6.5 (2.0-14.0) % Eos % (Auto) 0.6 (0.0-5.0) % Baso % (Auto) 0.2 (0.0-2.0) % Neut # (Auto) 8.08 H (1.40-7.00) K/uL Lymph # (Auto) 1.12 (0.50-3.50) K/uL [place] # (Auto) 0.64 (0.00-1.00) K/uL Eos # (Auto) 0.06 (0.00-0.50) K/uL Baso # (Auto) 0.02 (0.00-0.20) K/uL Sodium 142 (136-145) mmol/L Potassium 4.3 (3.5-5.1) mmol/L Chloride 106 (98-107) mmol/L Carbon Dioxide 24.7 (21.0-32.0) mmol/L BUN (7-18) mg/dL Creatinine 0.62 (0.51-1.17) mg/dL Est Cr Clr Drug Dosing 47.65 mL/min Estimated GFR (MDRD) > 60 mL/min Glucose 153 H (74-106) mg/dL POC Glucose (65-110) mg/dl Lactic Acid 1.7 (0.4-2.0) mmol/L Calcium 9.9 (8.5-10.1) mg/dL Magnesium 1.3 L (1.8-2.4) mg/dL Total Bilirubin 0.9 (0.2-1.0) mg/dL AST 27 (15-37) U/L ALT 28 (12-78) U/L Alkaline Phosphatase 119 H (46-116) IU/L C-Reactive Protein (<=0.9) mg/dL Total Protein 6.6 (6.4-8.2) g/dL Albumin 4.0 (3.4-5.0) g/dL Amylase 418 H (25-115) U/L Lipase 3934 H (73-393) U/L TSH, Ultra Sensitive (0.358-3.740) mIU/mL Specimen Type Urine Color Urine Appearance Urine pH (5.0-9.0) Ur Specific [place] (1.005-1.030) Urine Protein (NEGATIVE) mg/dL Urine Glucose (UA) (NEGATIVE) mg/dL Urine Ketones (NEGATIVE) mg/dL Urine Occult Blood (NEGATIVE) Urine Nitrite (NEGATIVE) Urine Bilirubin (NEGATIVE) Urine Urobilinogen (0.2-1.0) E.U./dL Ur Leukocyte Esterase (NEGATIVE) Urine RBC /HPF Urine WBC /HPF Ur Epithelial Cells /LPF Amorphous Sediment (0/HPF) /HPF Urine Bacteria (NONE TO FEW) /HPF 07/14/19 07/14/19 07/14/19 Range/Units 11:45 17:37 17:45 WBC (4.0-10.2) K/uL RBC (3.77-5.09) M/uL Hgb (11.7-15.5) g/dL Hct (34.0-46.0) % MCV (84.0-98.0) fL MCH (28.2-33.3) pg MCHC (31.7-36.0) g/dL RDW (11.2-14.1) % Plt Count (150-350) K/uL Neut % (Auto) (45.0-80.0) % Lymph % (Auto) (10.0-50.0) % [place] % (Auto) (2.0-14.0) % Eos % (Auto) (0.0-5.0) % Baso % (Auto) (0.0-2.0) % Neut # (Auto) (1.40-7.00) K/uL Lymph # (Auto) (0.50-3.50) K/uL [place] # (Auto) (0.00-1.00) K/uL Eos # (Auto) (0.00-0.50) K/uL Baso # (Auto) (0.00-0.20) K/uL Sodium (136-145) mmol/L Potassium (3.5-5.1) mmol/L Chloride (98-107) mmol/L Carbon Dioxide (21.0-32.0) mmol/L BUN (7-18) mg/dL Creatinine (0.51-1.17) mg/dL Est Cr Clr Drug Dosing mL/min Estimated GFR (MDRD) mL/min Glucose (74-106) mg/dL POC Glucose 118 H (65-110) mg/dl Lactic Acid (0.4-2.0) mmol/L Calcium (8.5-10.1) mg/dL Magnesium (1.8-2.4) mg/dL Total Bilirubin (0.2-1.0) mg/dL AST (15-37) U/L ALT (12-78) U/L Alkaline Phosphatase (46-116) IU/L C-Reactive Protein < 0.2 (<=0.9) mg/dL Total Protein (6.4-8.2) g/dL Albumin (3.4-5.0) g/dL Amylase (25-115) U/L Lipase (73-393) U/L TSH, Ultra Sensitive (0.358-3.740) mIU/mL Specimen Type Urinblad Urine Color Yellow Urine Appearance Cloudy Urine pH 5.0 (5.0-9.0) Ur Specific [place] 1.025 (1.005-1.030) Urine Protein Negative (NEGATIVE) mg/dL Urine Glucose (UA) Negative (NEGATIVE) mg/dL Urine Ketones Trace H (NEGATIVE) mg/dL Urine Occult Blood Negative (NEGATIVE) Urine Nitrite Negative (NEGATIVE) Urine Bilirubin Negative (NEGATIVE) Urine Urobilinogen 0.2 (0.2-1.0) E.U./dL Ur Leukocyte Esterase Negative (NEGATIVE) Urine RBC 0-5 /HPF Urine WBC 0-5 /HPF Ur Epithelial Cells Few /LPF Amorphous Sediment Many H (0/HPF) /HPF Urine Bacteria Moderate H (NONE TO FEW) /HPF 07/15/19 07/15/19 07/15/19 Range/Units 07:09 07:09 07:09 WBC 7.4 (4.0-10.2) K/uL RBC 3.71 L (3.77-5.09) M/uL Hgb 11.3 L D (11.7-15.5) g/dL Hct 35.6 (34.0-46.0) % MCV 96.0 (84.0-98.0) fL MCH 30.5 (28.2-33.3) pg MCHC 31.7 (31.7-36.0) g/dL RDW 14.2 H (11.2-14.1) % Plt Count 76 L (150-350) K/uL Neut % (Auto) 70.1 (45.0-80.0) % Lymph % (Auto) 21.1 (10.0-50.0) % [place] % (Auto) 8.2 (2.0-14.0) % Eos % (Auto) 0.5 (0.0-5.0) % Baso % (Auto) 0.1 (0.0-2.0) % Neut # (Auto) 5.19 (1.40-7.00) K/uL Lymph # (Auto) 1.56 (0.50-3.50) K/uL [place] # (Auto) 0.61 (0.00-1.00) K/uL Eos # (Auto) 0.04 (0.00-0.50) K/uL Baso # (Auto) 0.01 (0.00-0.20) K/uL Sodium 141 (136-145) mmol/L Potassium 4.1 (3.5-5.1) mmol/L Chloride 108 H (98-107) mmol/L Carbon Dioxide 25.3 (21.0-32.0) mmol/L BUN 16 (7-18) mg/dL Creatinine 0.66 (0.51-1.17) mg/dL Est Cr Clr Drug Dosing 44.76 mL/min Estimated GFR (MDRD) > 60 mL/min Glucose 109 H (74-106) mg/dL POC Glucose (65-110) mg/dl Lactic Acid 1.1 (0.4-2.0) mmol/L Calcium 9.1 (8.5-10.1) mg/dL Magnesium 1.8 (1.8-2.4) mg/dL Total Bilirubin 0.9 (0.2-1.0) mg/dL AST 19 (15-37) U/L ALT 20 (12-78) U/L Alkaline Phosphatase 81 (46-116) IU/L C-Reactive Protein 10.7 H (<=0.9) mg/dL Total Protein 5.5 L (6.4-8.2) g/dL Albumin 3.0 L (3.4-5.0) g/dL Amylase (25-115) U/L Lipase (73-393) U/L TSH, Ultra Sensitive 0.309 L (0.358-3.740) mIU/mL Specimen Type Urine Color Urine Appearance Urine pH (5.0-9.0) Ur Specific [place] (1.005-1.030) Urine Protein (NEGATIVE) mg/dL Urine Glucose (UA) (NEGATIVE) mg/dL Urine Ketones (NEGATIVE) mg/dL Urine Occult Blood (NEGATIVE) Urine Nitrite (NEGATIVE) Urine Bilirubin (NEGATIVE) Urine Urobilinogen (0.2-1.0) E.U./dL Ur Leukocyte Esterase (NEGATIVE) Urine RBC /HPF Urine WBC /HPF Ur Epithelial Cells /LPF Amorphous Sediment (0/HPF) /HPF Urine Bacteria (NONE TO FEW) /HPF 07/15/19 Range/Units 07:27 WBC (4.0-10.2) K/uL RBC (3.77-5.09) M/uL Hgb (11.7-15.5) g/dL Hct (34.0-46.0) % MCV (84.0-98.0) fL MCH (28.2-33.3) pg MCHC (31.7-36.0) g/dL RDW (11.2-14.1) % Plt Count (150-350) K/uL Neut % (Auto) (45.0-80.0) % Lymph % (Auto) (10.0-50.0) % [place] % (Auto) (2.0-14.0) % Eos % (Auto) (0.0-5.0) % Baso % (Auto) (0.0-2.0) % Neut # (Auto) (1.40-7.00) K/uL Lymph # (Auto) (0.50-3.50) K/uL [place] # (Auto) (0.00-1.00) K/uL Eos # (Auto) (0.00-0.50) K/uL Baso # (Auto) (0.00-0.20) K/uL Sodium (136-145) mmol/L Potassium (3.5-5.1) mmol/L Chloride (98-107) mmol/L Carbon Dioxide (21.0-32.0) mmol/L BUN (7-18) mg/dL Creatinine (0.51-1.17) mg/dL Est Cr Clr Drug Dosing mL/min Estimated GFR (MDRD) mL/min Glucose (74-106) mg/dL POC Glucose 100 (65-110) mg/dl Lactic Acid (0.4-2.0) mmol/L Calcium (8.5-10.1) mg/dL Magnesium (1.8-2.4) mg/dL Total Bilirubin (0.2-1.0) mg/dL AST (15-37) U/L ALT (12-78) U/L Alkaline Phosphatase (46-116) IU/L C-Reactive Protein (<=0.9) mg/dL Total Protein (6.4-8.2) g/dL Albumin (3.4-5.0) g/dL Amylase (25-115) U/L Lipase (73-393) U/L TSH, Ultra Sensitive (0.358-3.740) mIU/mL Specimen Type Urine Color Urine Appearance Urine pH (5.0-9.0) Ur Specific [place] (1.005-1.030) Urine Protein (NEGATIVE) mg/dL Urine Glucose (UA) (NEGATIVE) mg/dL Urine Ketones (NEGATIVE) mg/dL Urine Occult Blood (NEGATIVE) Urine Nitrite (NEGATIVE) Urine Bilirubin (NEGATIVE) Urine Urobilinogen (0.2-1.0) E.U./dL Ur Leukocyte Esterase (NEGATIVE) Urine RBC /HPF Urine WBC /HPF Ur Epithelial Cells /LPF Amorphous Sediment (0/HPF) /HPF Urine Bacteria (NONE TO FEW) /HPF Med Orders - Current: Current Medications Aspirin (Halfprin) 81 mg PO DAILY [facility] Last Admin: 07/15/19 07:25 Dose: 81 mg Bisacodyl (Dulcolax) 5 mg PO DAILY PRN PRN Reason: Constipation Coenzyme Q10 (Coenzyme Q10) 100 mg PO DAILY@1200 [facility] Last Admin: 07/15/19 11:44 Dose: 100 mg Lactated Ringer's (Ringers, Lactated) 1,000 mls @ 75 mls/hr IV ASDIRECTED [facility] Last Admin: 07/15/19 11:44 Dose: 100 mls/hr Levothyroxine Sodium (Synthroid) 50 mcg PO ACBRK [facility] Last Admin: 07/15/19 07:25 Dose: 50 mcg Losartan Potassium (Cozaar) 50 mg PO DAILY [facility] Last Admin: 07/15/19 07:25 Dose: 50 mg Metformin HCl (Glucophage) 500 mg PO TID [facility] Last Admin: 07/15/19 11:44 Dose: 500 mg Morphine Sulfate (Morphine) 2 mg IVPUSH Q1H PRN PRN Reason: Pain (severe 7-10) Last Admin: 07/14/19 14:26 Dose: 2 mg Ondansetron HCl (Zofran) 4 mg IVPUSH Q6H PRN PRN Reason: Nausea/Vomiting Last Admin: 07/14/19 14:26 Dose: 4 mg Pantoprazole Sodium (Protonix Iv) 40 mg IVPUSH DAILY@0900 [facility] Last Admin: 07/15/19 09:27 Dose: 40 mg Rosuvastatin Calcium (Crestor) 10 mg PO BEDTIME [facility] Last Admin: 07/14/19 19:22 Dose: 10 mg Sodium Chloride (Saline Flush) 10 ml FLUSH ASDIRECTED PRN PRN Reason: Keep Vein Open Last Admin: 07/15/19 09:27 Dose: 10 ml Discontinued Medications Magnesium Sulfate/Dextrose 1 (gm/ Premix) 100 mls @ 100 mls/hr IV ONETIME ONE Stop: 07/14/19 14:15 Last Admin: 07/14/19 14:20 Dose: 100 mls/hr Magnesium Sulfate/Dextrose 1 (gm/ Premix) 100 mls @ 100 mls/hr IV ONETIME ONE Stop: 07/14/19 17:59 Last Admin: 07/14/19 17:59 Dose: 100 mls/hr Non-Formulary Medication (Metformin Hcl [Metformin Hcl Er]) 750 mg PO BID [facility] - Exam General: Alert, Oriented, Cooperative, No Acute Distress HEENT: Pupils Equal, Pupils Reactive, EOMI, Mucous Membr. Moist/[place] Neck: Supple Lungs: Clear to Auscultation, Normal Respiratory Effort Cardiovascular: Regular Rate, Regular Rhythm GI/Abdominal Exam: Soft, No Distention, Other (decreased bowel sounds. Some discomfort with palpation of epigastric/RUQ area. ) (Female) Exam: Deferred Back Exam: No: CVA Tenderness (L), CVA Tenderness (R), Muscle Spasm, Paraspinal Tenderness, Vertebral Tenderness Extremities: Normal Inspection, Non-Tender, Normal Capillary Refill Skin: Warm, Dry Neurological: No New Focal Deficit Psy/Mental Status: Alert, Normal Affect, Normal Mood Sepsis Event Note - Evaluation Sepsis Screening Result: No Definite Risk - Focused Exam Vital Signs: Vital Signs Temp Pulse Resp BP BP Pulse Ox 07/15/19 11:49 37.4 C 88 18 135/65 97 07/15/19 07:25 108/59 L 07/15/19 07:21 36.9 C 76 18 108/59 L 94 L Date Exam was Performed: 07/15/19 Time Exam was Performed: 11:51 - Problem List & Annotations (1) Pancreatitis SNOMED Code(s): 41076494 Code(s): K85.9 - ACUTE PANCREATITIS, UNSPECIFIED * DO NOT USE * Status: Acute Priority: High Current Visit: Yes Onset Date: ~12/16/15 Qualifiers: Chronicity: acute Pancreatitis type: unspecified pancreatitis type Acute pancreatitis complication: unspecified Qualified Code(s): K85.90 - Acute pancreatitis without necrosis or infection, unspecified Annotation/Comment:: Patient has long history of intermittent pancreatitis. Pain has improved with MS. Afebrile. Normal WBC. She would like to stay in [place] for treatment. Will initiate bowel rest/IV fluids. Schedule US for Tuesday. Consider transfer to [facility] if there is worsening of patient's condition. Repeat amylase/lipase in AM (2) Hypomagnesemia SNOMED Code(s): 553292923 Code(s): E83.42 - HYPOMAGNESEMIA Status: Chronic Priority: Medium Current Visit: Yes Annotation/Comment:: Patient is on oral supplementation but level is significantly low today. IV supplementation returned level to minimal normal level. Recheck again in AM (3) Hypothyroid SNOMED Code(s): 49358597 Code(s): E03.9 - HYPOTHYROIDISM, UNSPECIFIED Status: Chronic Priority: Low Current Visit: No Qualifiers: Hypothyroidism type: unspecified Qualified Code(s): E03.9 - Hypothyroidism , unspecified Annotation/Comment:: Under therapy and followed by primary clinic. TSH 0.309 currently (4) Heart murmur, systolic SNOMED Code(s): 38508940 Code(s): I38 - ENDOCARDITIS, VALVE UNSPECIFIED Status: Chronic Priority: Low Current Visit: No Annotation/Comment:: History of chronic systolic ejection murmur. (5) Hypertension SNOMED Code(s): 07922946 Code(s): I10 - ESSENTIAL (PRIMARY) HYPERTENSION Status: Chronic Priority : Low Current Visit: No Qualifiers: Hypertension type: essential hypertension Qualified Code(s): I10 - Essential (primary) hypertension Annotation/Comment:: Observe /overall stable readings during stay (6) Dyslipidemia SNOMED Code(s): 813100467 Code(s): E78.5 - HYPERLIPIDEMIA, UNSPECIFIED Status: Chronic Priority: Low Current Visit: No Annotation/Comment:: Under therapy and followed by primary provider. (7) Osteoarthritis SNOMED Code(s): 907226295 Code(s): M19.90 - UNSPECIFIED OSTEOARTHRITIS, UNSPECIFIED SITE Status: Chronic Priority: Low Current Visit: No Qualifiers: Osteoarthritis location: multiple joints Osteoarthritis type: primary Qualified Code(s): M15.0 - Primary generalized (osteo)arthritis Annotation/Comment:: Stable by history (8) Heart disease SNOMED Code(s): 47105830 Code(s): I51.9 - HEART DISEASE, UNSPECIFIED Status: Chronic Priority: Low Current Visit: No Annotation/Comment:: Right bundle branch block, diastolic dysfunction, valvular disease per history. No cardiac symptoms at this time (9) Peptic reflux disease SNOMED Code(s): 174301327 Code(s): K21.9 - GASTRO-ESOPHAGEAL REFLUX DISEASE WITHOUT ESOPHAGITIS Status: Chronic Priority: Low Current Visit: No Annotation/Comment:: Has been stable per patient (10) Diabetes mellitus SNOMED Code(s): 26785908 Code(s): E11.9 - TYPE 2 DIABETES MELLITUS WITHOUT COMPLICATIONS Status: Chronic Priority: Low Current Visit: Yes Qualifiers: Diabetes mellitus type: type 2 Diabetes mellitus terminal carman insulin use: without terminal carman use Diabetes mellitus complication status: without complication Qualified Code(s): E11.9 - Type 2 diabetes mellitus without complications Annotation/Comment:: Observe trends - Problem List Review Problem List Initiated/Reviewed/Updated: Yes - My Orders Last 24 Hours: My Active Orders 07/14/19 12:06 Abdomen 2V AP Flat Upright [CR] Stat 07/14/19 12:23 Sodium Chloride 0.9% [Saline Flush] 10 ml FLUSH ASDIRECTED PRN Saline Lock Insert [OM.PC] Routine 07/14/19 13:09 Patient Status [ADT] Routine Height and Weight [RC] UPON Oxygen Therapy [RC] .PRN Up With Assistance [RC] .PRN VTE/DVT Education [RC] .PRN Vital Signs [RC] Q6HR Morphine 2 mg IVPUSH Q1H PRN Ondansetron [Zofran] 4 mg IVPUSH Q6H PRN bisacodyL [Dulcolax] 5 mg PO DAILY PRN Resuscitation Status Routine 07/14/19 13:11 Pulse Oximetry [RC] PRN Antiembolic Hose [OM.PC] Per Unit Routine 07/14/19 13:12 Antiembolic Devices [RC] 07/14/19 13:15 Lactated Ringers [Ringers, Lactated] 1,000 ml IV ASDIRECTED Pantoprazole [ProTONIX IV] 40 mg IVPUSH DAILY@0900 07/14/19 15:07 Blood Glucose Check, Bedside [RC] BIDAC 07/14/19 18:00 metFORMIN [Glucophage] 500 mg PO TID 07/14/19 20:00 Rosuvastatin [Crestor] 10 mg PO BEDTIME 07/14/19 Lunch Nothing per Oral Now Diet [DIET] 07/15/19 07:30 Levothyroxine [Synthroid] 50 mcg PO ACBRK 07/15/19 08:00 Aspirin [Halfprin] 81 mg PO DAILY Losartan [Cozaar] 50 mg PO DAILY 07/15/19 12:00 Ubidecarenone [Coenzyme Q10] 100 mg PO DAILY@1200 07/16/19 05:11 AMYLASE [CHEM] AM COMPREHENSIVE METABOLIC PN,CMP [CHEM] AM LIPASE [CHEM] AM 07/16/19 05:15 CBC WITH AUTO DIFF [HEME] AM 07/16/19 09:00 Abdomen Ltd [US] Routine - Assessment Assessment:: as above - Plan Plan:: Continue bowel rest/clear liquids/pain management. US study requested for tomorrow. Repeat labs tomorrow.
[2019-07-15] MEDS: Rosuvastatin 10 MG Tab PO SCH (19:04)
[2019-07-15] MEDS: Acetaminophen 325 MG Tab PO PRN (20:50)
[2019-07-16] MEDS: Lactated Ringers 1,000 ML IV SCH (00:48)
[2019-07-16] MEDS: Morphine 2 MG/ML Syringe IVPUSH PRN ×3 (00:52→13:16)
[2019-07-16] MEDS: Acetaminophen 325 MG Tab PO PRN (03:52)
[2019-07-16 07:43] LABS: CHLORIDE,CL 107 mmol/L (98-107); SODIUM,NA 141 mmol/L (136-145)
[2019-07-16] MEDS ORDERED: Dextrose 5%-0.9% NaCl 1,000 ML IV SCH (08:15)
[2019-07-16] MEDS: Pantoprazole 40 MG Vial IVPUSH SCH (08:17)
[2019-07-16] MEDS: Sodium Chloride 0.9% 10 ML Syringe FLUSH PRN ×2 (08:25→13:17)
[2019-07-16] MEDS ORDERED: Iopamidol 612 MG/ML 100 ML Bottle IVPUSH ONE (09:00)
[2019-07-16] MEDS: metFORMIN 500 MG Tab PO SCH (09:51)
[2019-07-16 11:12] VITALS: BP 134/65; PULSE 86
[2019-07-16] MEDS: Levothyroxine 50 MCG Tab PO SCH (11:12)
[2019-07-16] MEDS: Aspirin 81 MG Tab.EC PO SCH (11:12)
[2019-07-16] MEDS: Losartan 50 MG Tab PO SCH (11:13)
--- NOTE | 2019-07-16 13:22 | PCM.DCSUM1 ---
Discharge Summary - Hospital Course Brief History: Admitted for treatment of acute pancreatitis Diagnosis: Stroke: No - Discharge Data Discharge Date: 07/16/19 Discharge Disposition: DC/Tfer to Acute Hospital 02 Condition: Good - Referral to Home Health Primary Care Physician: PCP None - Discharge Diagnosis/Problem(s) (1) Pancreatitis SNOMED Code(s): 46630399 ICD Code: K85.9 - ACUTE PANCREATITIS, UNSPECIFIED * DO NOT USE * Status: Acute Priority: High Current Visit: Yes Onset Date: ~12/16/15 Problem Details: Patient has long history of intermittent pancreatitis. Pain has improved with MS. Afebrile. Normal WBC. Amylase/lipase improved. Increased episodic spasms noted today. CT showed pancreatitis and suspected stone in ampulla/pancreatic duct dilated. Will need EGD/GI involvement and patient transfer arranged with [facility]. Qualifiers: Chronicity: acute Pancreatitis type: unspecified pancreatitis type Acute pancreatitis complication: unspecified Qualified Code(s): K85.90 - Acute pancreatitis without necrosis or infection, unspecified (2) Pancreatitis due to obstruction of pancreatic duct SNOMED Code(s): 247281610 ICD Code: K85.90 - ACUTE PANCREATITIS WITHOUT NECROSIS OR INFECTION, UNSP; K86.89 - OTHER SPECIFIED DISEASES OF PANCREAS Status: Acute Priority: High Current Visit: Yes Problem Details: see above (3) Hypomagnesemia SNOMED Code(s): 583664432 ICD Code: E83.42 - HYPOMAGNESEMIA Status: Chronic Priority: Medium Current Visit: Yes Problem Details: Continues to be low despite IV replacement (4) Hypothyroid SNOMED Code(s): 61068271 ICD Code: E03.9 - HYPOTHYROIDISM, UNSPECIFIED Status: Chronic Priority: Low Current Visit: No Problem Details: Under therapy and followed by primary clinic. TSH 0.309 currently Qualifiers: Hypothyroidism type: unspecified Qualified Code(s): E03.9 - Hypothyroidism , unspecified (5) Heart murmur, systolic SNOMED Code(s): 36117020 ICD Code: I38 - ENDOCARDITIS, VALVE UNSPECIFIED Status: Chronic Priority : Low Current Visit: No Problem Details: History of chronic systolic ejection murmur. (6) Hypertension SNOMED Code(s): 87196865 ICD Code: I10 - ESSENTIAL (PRIMARY) HYPERTENSION Status: Chronic Priority : Low Current Visit: No Problem Details: Observe /overall stable readings during stay Qualifiers: Hypertension type: essential hypertension Qualified Code(s): I10 - Essential (primary) hypertension (7) Dyslipidemia SNOMED Code(s): 363383882 ICD Code: E78.5 - HYPERLIPIDEMIA, UNSPECIFIED Status: Chronic Priority: Low Current Visit: No Problem Details: Under therapy and followed by primary provider. (8) Osteoarthritis SNOMED Code(s): 362849804 ICD Code: M19.90 - UNSPECIFIED OSTEOARTHRITIS, UNSPECIFIED SITE Status: Chronic Priority: Low Current Visit: No Problem Details: Stable by history Qualifiers: Osteoarthritis location: multiple joints Osteoarthritis type: primary Qualified Code(s): M15.0 - Primary generalized (osteo)arthritis (9) Heart disease SNOMED Code(s): 15551728 ICD Code: I51.9 - HEART DISEASE, UNSPECIFIED Status: Chronic Priority: Low Current Visit: No Problem Details: Right bundle branch block, diastolic dysfunction, valvular disease per history. 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 DVT anticoagulation contraindicated - Patient Summary/Data Hospital Course: Amylase/lipase improved. Afebrile. WBC normal. CT of abdomen performed today due to increasing abdominal pain. Found to have probable stone in ampulla/ dilated pancreatic duct. Will need to have stone removed. [facility] to [facility] and patient to be transferred to their facility for further evaluation and care. GI available to consult on patient. Continues to have low Mg. Pain controlled will with MS. Felicitas CERVANTES at [facility]: - Discharge Plan *PRESCRIPTION DRUG MONITORING PROGRAM REVIEWED*: Not Applicable *COPY OF PRESCRIPTION DRUG MONITORING REPORT IN PATIENT TAISHA: Not Applicable Home Medications: Home Meds Aspirin [Halfprin] 81 mg PO DAILY 08/26/13 [History] Cholecalciferol (Vitamin D3) [Vitamin D3] 1,000 unit PO DAILY@1800 08/26/13 [ History] Levothyroxine [Synthroid] 50 mcg PO ACBRK 08/26/13 [History] Multivit-Min/FA/Lycopene/Lut [Centrum Silver] 1 each PO DAILY@1200 08/26/13 [ History] Omeprazole 20 mg PO DAILY 08/26/13 [History] Rosuvastatin [Crestor] 10 mg PO BEDTIME 08/26/13 [History] Acetaminophen 1,000 mg PO Q6H PRN 12/16/15 [History] Ubidecarenone [Co Q-10] 100 mg PO DAILY@1200 12/16/15 [History] metFORMIN HCl [Metformin HCl ER] 750 mg PO BID 12/16/15 [History] Lipase/Protease/Amylase [[place] DRUMMOND 3,000 Unit] 12,000 unit PO TID 10/20/16 [ History] Magnesium 500 mg PO DAILY@1200 10/20/16 [History] Phenyleph/Mineral Oil/Petrolat [Preparation H Ointment] 1 applic RECTAL ASDIRECTED PRN 10/20/16 [History] Naproxen Sodium [Aleve] 1 tab PO BID PRN 10/21/16 [History] Losartan Potassium 50 mg PO DAILY 09/03/18 [History] Patient Handouts: Ondansetron injection, Pantoprazole injection, Magnesium Sulfate injection, Enoxaparin injection, Morphine injection solution, Acute Pancreatitis Forms: ED Department Discharge Referrals: PCP,None [Primary Care Provider] - - Discharge Summary/Plan Comment DC Time >30 min.: No - General Info Date of Service: 07/16/19 Admission Dx/Problem (Free Text: Patient admitted for treatment of pancreatitis/abdominal pain. Found to have pancreatic duct dilatation and suspected stone at the ampulla. Subjective Update: Increased episodic pain in epigastric and RUQ area this morning. No other acute changes. Functional Status: Reports: Pain Controlled, Ambulating, Urinating, Other ( clear liquids only). Denies: New Symptoms - Review of Systems General: Reports: Weakness, Appetite (decreased). Denies: Fever, Fatigue, Malaise, Chills, Night Sweats HEENT: Reports: Glasses Pulmonary: Reports: No Symptoms Cardiovascular: Reports: No Symptoms Gastrointestinal: Reports: Abdominal Pain, Decreased Appetite. Denies: Diarrhea , Difficulty Swallowing, Hematochezia, Melena, Nausea, Vomiting Genitourinary: Reports: No Symptoms Musculoskeletal: Reports: Other (no acute changes from baseline) Skin: Reports: Other (no acute changes) Neurological: Reports: No Symptoms Psychiatric: Reports: No Symptoms - Patient Data Vitals - Most Recent: Last Vital Signs Temp 36.4 C 07/16/19 11:12 Pulse 86 07/16/19 11:12 Resp 18 07/16/19 11:12 BP 134/65 07/16/19 11:13 Pulse Ox 96 07/16/19 11:12 Weight - Most Recent: 49.895 kg I&O - Last 24 hours: Intake & Output 07/15/19 07/16/19 07/16/19 22:59 06:59 14:59 Intake Total 120 1102 Output Total 500 620 Balance -380 -620 1102 Lab Results - Last 24 hrs: Laboratory Results - last 24 hr 07/15/19 07/16/19 07/16/19 Range/Units 16:58 07:09 07:09 WBC 6.4 (4.0-10.2) K/uL RBC 3.81 (3.77-5.09) M/uL Hgb 11.5 L (11.7-15.5) g/dL Hct 36.7 (34.0-46.0) % MCV 96.3 (84.0-98.0) fL MCH 30.2 (28.2-33.3) pg MCHC 31.3 L (31.7-36.0) g/dL RDW 13.6 (11.2-14.1) % Plt Count 67 L (150-350) K/uL Neut % (Auto) 73.0 (45.0-80.0) % Lymph % (Auto) 17.2 (10.0-50.0) % [place] % (Auto) 8.7 (2.0-14.0) % Eos % (Auto) 0.9 (0.0-5.0) % Baso % (Auto) 0.2 (0.0-2.0) % Neut # (Auto) 4.68 (1.40-7.00) K/uL Lymph # (Auto) 1.10 (0.50-3.50) K/uL [place] # (Auto) 0.56 (0.00-1.00) K/uL Eos # (Auto) 0.06 (0.00-0.50) K/uL Baso # (Auto) 0.01 (0.00-0.20) K/uL Sodium 141 (136-145) mmol/L Potassium 4.1 (3.5-5.1) mmol/L Chloride 107 (98-107) mmol/L Carbon Dioxide 23.0 (21.0-32.0) mmol/L BUN 14 (7-18) mg/dL Creatinine 0.61 (0.51-1.17) mg/dL Est Cr Clr Drug Dosing 48.43 mL/min Estimated GFR (MDRD) > 60 mL/min Glucose 72 L (74-106) mg/dL POC Glucose 81 (65-110) mg/dl Calcium 9.5 (8.5-10.1) mg/dL Magnesium 1.5 L (1.8-2.4) mg/dL Total Bilirubin 1.1 H (0.2-1.0) mg/dL AST 25 (15-37) U/L ALT 20 (12-78) U/L Alkaline Phosphatase 89 (46-116) IU/L Total Protein 5.7 L (6.4-8.2) g/dL Albumin 3.0 L (3.4-5.0) g/dL Amylase 96 (25-115) U/L Lipase 465 H (73-393) U/L 07/16/19 Range/Units 07:28 WBC (4.0-10.2) K/uL RBC (3.77-5.09) M/uL Hgb (11.7-15.5) g/dL Hct (34.0-46.0) % MCV (84.0-98.0) fL MCH (28.2-33.3) pg MCHC (31.7-36.0) g/dL RDW (11.2-14.1) % Plt Count (150-350) K/uL Neut % (Auto) (45.0-80.0) % Lymph % (Auto) (10.0-50.0) % [place] % (Auto) (2.0-14.0) % Eos % (Auto) (0.0-5.0) % Baso % (Auto) (0.0-2.0) % Neut # (Auto) (1.40-7.00) K/uL Lymph # (Auto) (0.50-3.50) K/uL [place] # (Auto) (0.00-1.00) K/uL Eos # (Auto) (0.00-0.50) K/uL Baso # (Auto) (0.00-0.20) K/uL Sodium (136-145) mmol/L Potassium (3.5-5.1) mmol/L Chloride (98-107) mmol/L Carbon Dioxide (21.0-32.0) mmol/L BUN (7-18) mg/dL Creatinine (0.51-1.17) mg/dL Est Cr Clr Drug Dosing mL/min Estimated GFR (MDRD) mL/min Glucose (74-106) mg/dL POC Glucose 63 L (65-110) mg/dl Calcium (8.5-10.1) mg/dL Magnesium (1.8-2.4) mg/dL Total Bilirubin (0.2-1.0) mg/dL AST (15-37) U/L ALT (12-78) U/L Alkaline Phosphatase (46-116) IU/L Total Protein (6.4-8.2) g/dL Albumin (3.4-5.0) g/dL Amylase (25-115) U/L Lipase (73-393) U/L Med Orders - Current: Current Medications Acetaminophen (Tylenol) 650 mg PO Q6H PRN PRN Reason: Abdominal Pain Last Admin: 07/16/19 03:52 Dose: 650 mg Aspirin (Halfprin) 81 mg PO DAILY [facility] Last Admin: 07/16/19 11:12 Dose: 81 mg Bisacodyl (Dulcolax) 5 mg PO DAILY PRN PRN Reason: Constipation Coenzyme Q10 (Coenzyme Q10) 100 mg PO DAILY@1200 [facility] Last Admin: 07/15/19 11:44 Dose: 100 mg Dextrose/Sodium Chloride (Dextrose 5%-Normal Saline) 1,000 mls @ 50 mls/hr IV ASDIRECTED [facility] Last Admin: 07/16/19 08:18 Dose: 50 mls/hr Levothyroxine Sodium (Synthroid) 50 mcg PO ACBRK [facility] Last Admin: 07/16/19 11:12 Dose: 50 mcg Losartan Potassium (Cozaar) 50 mg PO DAILY [facility] Last Admin: 07/16/19 11:13 Dose: 50 mg Metformin HCl (Glucophage) 500 mg PO TID [facility] Last Admin: 07/16/19 09:51 Dose: Not Given Morphine Sulfate (Morphine) 2 mg IVPUSH Q1H PRN PRN Reason: Pain (severe 7-10) Last Admin: 07/16/19 08:25 Dose: 2 mg Ondansetron HCl (Zofran) 4 mg IVPUSH Q6H PRN PRN Reason: Nausea/Vomiting Last Admin: 07/14/19 14:26 Dose: 4 mg Pantoprazole Sodium (Protonix Iv) 40 mg IVPUSH DAILY@0900 [facility] Last Admin: 07/16/19 08:17 Dose: 40 mg Rosuvastatin Calcium (Crestor) 10 mg PO BEDTIME [facility] Last Admin: 07/15/19 19:04 Dose: 10 mg Sodium Chloride (Saline Flush) 10 ml FLUSH ASDIRECTED PRN PRN Reason: Keep Vein Open Last Admin: 07/16/19 08:25 Dose: 10 ml Discontinued Medications Enoxaparin Sodium (Lovenox) 40 mg SUBCUT Q24H [facility] Last Admin: 07/15/19 18:52 Dose: Not Given Lactated Ringer's (Ringers, Lactated) 1,000 mls @ 75 mls/hr IV ASDIRECTED [facility] Last Admin: 07/16/19 00:48 Dose: 75 mls/hr Magnesium Sulfate/Dextrose 1 (gm/ Premix) 100 mls @ 100 mls/hr IV ONETIME ONE Stop: 07/14/19 14:15 Last Admin: 07/14/19 14:20 Dose: 100 mls/hr Magnesium Sulfate/Dextrose 1 (gm/ Premix) 100 mls @ 100 mls/hr IV ONETIME ONE Stop: 07/14/19 17:59 Last Admin: 07/14/19 17:59 Dose: 100 mls/hr Iopamidol (Isovue-300 (61%)) 100 ml IVPUSH ONETIME ONE Stop: 07/16/19 09:01 Last Admin: 07/16/19 09:27 Dose: 100 ml Non-Formulary Medication (Metformin Hcl [Metformin Hcl Er]) 750 mg PO BID LINDA - Exam General: Reports: Alert, Oriented, Cooperative, No Acute Distress HEENT: Reports: Pupils Equal, Pupils Reactive, EOMI, Mucous Membr. Moist/[place] Neck: Reports: Supple Lungs: Reports: Clear to Auscultation, Normal Respiratory Effort Cardiovascular: Reports: Regular Rate, Regular Rhythm GI/Abdominal Exam: Soft, Tender (epigastric and RUQ), Abnormal Bowel Sounds ( decreased). No: Guarding, Rigid, Rebound (Female) Exam: Deferred Rectal (Female) Exam: Deferred Back Exam: Denies: CVA Tenderness (L), CVA Tenderness (R), Muscle Spasm, Paraspinal Tenderness, Vertebral Tenderness Extremities: Non-Tender, Normal Capillary Refill Skin: Reports: Warm, Dry Neurological: Reports: No New Focal Deficit Psy/Mental Status: Reports: Alert, Normal Affect, Normal Mood
== END 2019-07-16 13:30 | DRG 440 ==
LOC: LL.ED 11:08 → LL.MS 12:44 → UNDOADMIN 12:44 → LL.MS 13:09
PROVIDERS: ADMIT Emergency Medicine; ATTEND Emergency Medicine
DX: K85.90 Acute pancreatitis without necrosis or infection, unspecified (principal); H04.129 Dry eye syndrome of unspecified lacrimal gland; K86.89 Other specified diseases of pancreas; E83.42 Hypomagnesemia; E03.9 Hypothyroidism, unspecified; N39.3 Stress incontinence (female) (male); M19.90 Unspecified osteoarthritis, unspecified site; E11.40 Type 2 diabetes mellitus with diabetic neuropathy, unspecified; I10 Essential (primary) hypertension; M85.80 Other specified disorders of bone density and structure, unspecified site; Z85.850 Personal history of malignant neoplasm of thyroid; Z98.42 Cataract extraction status, left eye; Z98.41 Cataract extraction status, right eye; Z96.1 Presence of intraocular lens; E89.0 Postprocedural hypothyroidism; I08.0 Rheumatic disorders of both mitral and aortic valves; E78.5 Hyperlipidemia, unspecified; M15.0 Primary generalized (osteo)arthritis; I51.9 Heart disease, unspecified; K21.9 Gastro-esophageal reflux disease without esophagitis; Z88.1 Allergy status to other antibiotic agents; D69.6 Thrombocytopenia, unspecified; E78.00 Pure hypercholesterolemia, unspecified; J44.9 Chronic obstructive pulmonary disease, unspecified; E11.42 Type 2 diabetes mellitus with diabetic polyneuropathy; F41.0 Panic disorder [episodic paroxysmal anxiety]; F32.9 Major depressive disorder, single episode, unspecified; R01.1 Cardiac murmur, unspecified; Z88.0 Allergy status to penicillin; Z88.8 Allergy status to other drugs, medicaments and biological substances; Z79.82 Long term (current) use of aspirin; Z79.890 Hormone replacement therapy; Z79.84 Long term (current) use of oral hypoglycemic drugs; Z79.899 Other long term (current) drug therapy
CPT/HCPCS: 36415; 74019; 74177; 80053; 81001; 82150; 82962; 83605; 83690; 83735; 84443; 85025; 86140; 99285-25; A9270-GY; C9113; J2270; J2405; J3475; J7042; J7120; Q9967

== ENCOUNTER 2020-08-01 12:57 | Emergency (ER) | payer MEDICARE, BC ==
[2020-08-01] MEDS ORDERED: Aspirin 81 MG Tab.Chew CHEW ONE (13:01)
[2020-08-01] MEDS ORDERED: Sodium Chloride 0.9% 10 ML Syringe FLUSH PRN (13:01)
[2020-08-01] MEDS ORDERED: Ticagrelor 90 MG Tab PO ONE (13:01)
[2020-08-01] MEDS ORDERED: Famotidine 20 MG/2 ML SDV IVPUSH ONE ×2 (13:01→13:35)
--- NOTE | 2020-08-01 13:01 | EDM.PDOC ---
ED HPI GENERAL MEDICAL PROBLEM - General Chief Complaint: General Stated Complaint: dizziness, nausea Time Seen by Provider: 08/01/20 12:57 Source of Information: Reports: EMS, Old Records ([facility] chart/EMR), Other ([facility] EMR). Denies: EMS Notes Reviewed (Not available at time of dictation) History Limitations: Reports: No Limitations - History of Present Illness INITIAL COMMENTS - FREE TEXT/NARRATIVE: The patient was brought to the emergency room via ambulance with poultry hanger accompaniment with no treatment in route. Note that the patient has been having some nonspecific intermittent epigastric and retrosternal "heaviness" associated with nonspecific fatigue, nausea, and dizziness during the last week with significant similar attack occurring at noon today. Her blood pressure was 190/96 initially at the scene with improvement prior to arrival of her blood pressure at 168/91. She also had some nonspecific specific left shoulder and left arm 4 defect macronodular cough/10 ache, which is reproducible with movement, with no history of fall, injury, etc. The patient denies any chest pressure, heart flutter, orthostasis, orthopnea, diaphoresis, paresthesias, recent decreased exercise tolerance, or any other anginal-type symptoms. The patient did have a recent normal heart catheterization on 07/18/2020. No recent history of abdominal pain, heartburn, emesis, diarrhea, melena, gross hematochezia, or any food intolerance, including fatty foods, etc. with normal bowel movement yesterday. She denies any gross hematuria, colic, or other UTI symptoms. The patient also denies any recent fever, cough, wheezing, dyspnea, etc.. The patient did have breakfast this morning and was about ready to eat lunch. No history of recent headaches, visual changes, diplopia, change in mental status, or other change in neurological status. Onset: Today, Sudden Onset Date: 08/01/20 Onset Time: 12:00 Duration: Intermittent, Improving Location: Reports: Chest, Abdomen, Upper Extremity, Left. Denies: Head, Face, Neck, Back, Pelvis, Upper Extremity, Right, Radiates to (No true radiation of her epigastric or chest discomfort) Quality: Reports: Ache, Same as Previous Episode Severity: Mild Improves with: Reports: Rest Worsens with: Reports: Movement Context: Reports: Other (As above). Denies: Sick Contact, Trauma Associated Symptoms: Reports: Chest Pain, Nausea/Vomiting (No emesis). Denies: Confusion, Cough, Diaphoresis, Fever/Chills, Headaches, Loss of Appetite, Malaise, Shortness of Breath, Syncope, Weakness Treatments LEAD PRODUCER: Reports: Other (see below) (None) Chest Pain Score (Numeric/FACES): 4 - Related Data Allergies Allergy/AdvReac Type Severity Reaction Status Date / Time atorvastatin calcium Allergy muscle pain Verified 07/14/19 11:12 [From Lipitor] doxycycline Allergy Abdominal Verified 07/14/19 11:12 Pain lisinopril Allergy Anaphylactic Verified 07/14/19 11:12 Shock Penicillins Allergy Anaphylactic Verified 07/14/19 11:12 Shock Home Meds: Home Meds Aspirin [Halfprin] 81 mg PO DAILY 08/26/13 [History] Cholecalciferol (Vitamin D3) [Vitamin D3] 1,000 unit PO DAILY@1800 08/26/13 [His tory] Levothyroxine [Synthroid] 50 mcg PO ACBRK 08/26/13 [History] Multivit-Min/FA/Lycopene/Lut [Centrum Silver] 1 each PO DAILY@1200 08/26/13 [History] Omeprazole 20 mg PO DAILY 08/26/13 [History] Rosuvastatin [Crestor] 10 mg PO BEDTIME 08/26/13 [History] Acetaminophen 1,000 mg PO Q6H PRN 12/16/15 [History] Ubidecarenone [Co Q-10] 100 mg PO DAILY@1200 12/16/15 [History] metFORMIN HCl [Metformin HCl ER] 750 mg PO BID 12/16/15 [History] Lipase/Protease/Amylase [Creon DR 3,000 Unit] 12,000 unit PO TID 10/20/16 [History] Magnesium 500 mg PO BID 10/20/16 [History] Phenyleph/Mineral Oil/Petrolat [Preparation H Ointment] 1 applic RECTAL ASDIRECTED PRN 10/20/16 [History] Naproxen Sodium [Aleve] 1 tab PO BID PRN 10/21/16 [History] L. Acidophilus/L.bulgaricus [Lactobacillus Tablet] 1 each PO DAILY 08/01/20 [History] Loperamide [Imodium AD] 2 mg PO QID PRN 08/01/20 [History] Past Medical History HEENT History: Reports: Cataract, Impaired Vision. Denies: Allergic Rhinitis, Glaucoma, Hard of Hearing, Macular Degeneration, Otitis Media, Retinal Detachment Other HEENT History: The patient wears glasses. Dry eye syndrome. Cardiovascular History: Reports: Arrhythmia, Cardiomyopathy, Heart Failure, Heart Murmur, High Cholesterol, Hypertension, PVD, Other (See Below). Denies: Afib, Aneurysm, Blood Clots/VTE/DVT, CAD, FL Other Cardiovascular History: Grade 1 diastolic dysfunction, mild left atrial enlargement, moderate left ventricular hypertrophy, moderate tricuspid valve i nsufficiency mild mitral valve insufficiency and aortic valve stenosis by echocardiogram as below. Mobitz type II second-degree AV block requiring pacemaker placement as below. Mild carotid occlusive disease by previous carotid artery Doppler studies on 08/16/2018 with previous 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? Dyslipidemia. Respiratory History: Reports: COPD, Intubation, Previous. Denies: Asthma, Bronchitis, Recurrent, Intubation, Difficult, PE, Pneumonia, Recurrent, Pneumothorax, Sleep Apnea, TB Other Respiratory History: 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 X ray Gastrointestinal History: Reports: Cholelithiasis, Chronic Diarrhea, Diverticulosis, Fatty Liver, Fecal Incontinence, GERD (He was up for), Helicobacter Pylori, Pancreatitis. Denies: Bowel Obstruction, Celiac Disease, Chronic Constipation, Gastritis, GI Bleed, Hepatitis, Inflammatory Bowel Disease, Irritable Bowel Syndrome, Jaundice Other Gastrointestinal History: Sigmoid diverticulosis history of recurrent colonic polyps including hyperplastic colonic polyp with mild recent excision of a serrated adenoma from the transverse colon and tubular adenoma from the hepatic flexure in February 2012. GERD with secondary esophagitis by EGD in February 2012 as below. Recurrent pancreatitis with additional previous history of a pancreatic pseudocyst requiring surgeries as below. Fatty liver and fatty pancreas with secondary recurrent pancreatitis as above and additional LFTs elevation. Genitourinary History: Reports: Urinary Incontinence, UTI, Recurrent. Denies: Acute Renal Failure, Chronic Renal Insuffiency, Renal Calculus, Retention, Urinary, STD, Urostomy Other Genitourinary History: Stress incontinence. ASSOCIATE BROKER History: Reports: Dysfunctional Uterine Bleeding, Fibroids, , Prolapsed Uterus : 2 Para: 2 LMP (Approximate): Other (See Below) Other ASSOCIATE BROKER History: Menopause in her early 50s. Full term without complications during pregnancies or deliveries. Musculoskeletal History: Reports: Arthritis, Back Pain, Chronic, Gout, Neck Pain, Chronic, Osteoarthritis, Osteoporosis. Denies: Fracture, RA Other Musculoskeletal History: Hyperuricemia Neurological History: Reports: Neuropathy, Diabetic, Neuropathy, Peripheral. Denies: Alzheimers Disease, Cerebral Aneurysms, Concussion, CVA, Head Trauma, Migraines, MS, Parkinson's, Seizure, TIA, Vertigo Psychiatric History: Reports: Addiction, Anxiety, Depression, Panic Attack, Othe r (See Below). Denies: Abuse, Victim of, ADD, ADHD, PTSD, Suicide Attempt, Suicidal Ideation Other Psychiatric History: History of chronic narcotic use secondary to chronic pain syndrome from chronic pancreatitis. Endocrine/Metabolic History: Reports: Diabetes, Type II, Hypokalemia, Hypothyroidism, Osteopenia, Osteoporosis, Other (See Below). Denies: Diabetes, Gestational, Diabetes, Type I, Diabetes Mellitus, Type 3c, IDDM Other Endocrine/Metabolic History: Hypomagnesemia. Hyponatremia. Hypercalcemia. Hypothyroidism secondary to previous thyroid cancer. Hematologic History: Reports: Other (See Below). Denies: Anemia, Blood Transfusion(s), Iron Deficiency Other Hematologic History: Thrombocytopenia Immunologic History: Reports: None. Denies: AIDS, HIV, SLE Oncologic (Cancer) History: Reports: Thyroid. 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 Denies: Eczema, Psoriasis - Infectious Disease History Infectious Disease History: Reports: Chicken Pox, Helicobacter Pylori, Herpes, Measles, Mumps, Pertussis (Whooping Cough), Other (See Below). Denies: C- Difficile, Meningitis, Mononucleosis, MRSA, Novel Coronavirus, Rheumatic Fever, Rubella, Scarlet Fever, Shingles, VRE Other Infectious Disease History: Vaginal herpes in June 2015, previously treated H. pylori as above - Past Surgical History Head Surgeries/Procedures: Reports: None HEENT Surgical History: Reports: Adenoidectomy, Cataract Surgery, Tonsillectomy. Denies: Eye Surgery, Laser Surgery, LASIK, Myringotomy w Tube(s), Naso-Sinus Surgery, Oral Surgery Other HEENT Surgeries/Procedures: cataract removal with implant right eye 1996/ left eye 2006 Cardiovascular Surgical History: Reports: Pacer, Other (See Below). Denies: Varicose Other Cardiovascular Surgeries/Procedures: Leadless intracardiac pacemaker placement on 07/16/2020. Respiratory Surgical History: Reports: None. Denies: Thoracentesis GI Surgical History: Reports: Cholecystectomy, Colonoscopy, EGD, Polypectomy, Other (See Below). Denies: Appendectomy, Hernia, Abdominal, Hernia, Inguinal, Hernia Repair/Other Other GI Surgeries/Procedures: Laparoscopic cholecystectomy on 11/30/2011. ERCP with pancreatic duct stent placement on 01/18/2012 with subsequent stent removal on 03/20/2012. Last EGD with biopsy and colonoscopy with polypectomies on 10/21/2016. Pancreatic pseudocyst drainage in 2015. Female Surgical History: Reports: Breast Biopsy, Other (See Below). Denies: D&C, Hysterectomy, Salpingo-Oophorectomy, Tubal Ligation Other Female Surgeries/Procedures: Right breast biopsy for benign disease in 2002. Endocrine Surgical History: Reports: Thyroid Biopsy, Thyroidectomy Other Endocrine Surgeries/Procedures: subtotal right thyroidectomy in 1958 Neurological Surgical History: Reports: None. Denies: C-Spine, Discectomy, Laminectomy, Lumbar Spine, Sacral Spine, Spinal Fusion, Thoracic Spine, Vertebr oplasty Musculoskeletal Surgical History: Reports: None. Denies: Arthroscopic Knee, Carpal Tunnel, Ganglion Cyst, Joint Replacement, Knee Replacement, ORIF, Shoulder Surgery Oncologic Surgical History: Reports: None, Biopsy of Breast, Lumpectomy Other Oncologic Surgeries/Procedures: right breast lumpectomy for benign disease as above. Dermatological Surgical History: Reports: None - Past Imaging History Past Imaging History: Reports: Angiography (Completely normal heart catheterization on 07/18/2020.), Cardiac Echo (Last echocardiogram on 06/22/2016 with an ejection fraction greater than 70% and otherwise findings as above. Previous echocardiogram on 10/01/2013.), Carotid US (Last on 08/16/2018 with findings as above.), CAT Scan (CT of the abdomen and pelvis on 07/16/2019, 09/03/2018, 12/16/2015, 08/07/2012. And 02/14/2012.), DEXA Scan (08/16/2014 on 11/20/2010.), Mammogram (Last on 03/24/2020.), MRI (Abdomen on 07/16/2019), Stress Testing (Positive in June 2020 with subsequent normal heart catheterization as above.) Social & Family History - Family History Cardiac: Reports: CAD, Heart Failure, High Cholesterol, Hypertension, FL, Other (See Below) Other Cardiac Family History: Father with initial FL in his 60s with fatal FL and CHF at age 80, 2 brothers and 2 sisters with hyperlipidemia, hypertension in mother, 2 sisters, and 2 brothers GI: Reports: Other (See Below) Other GI Family History: Son with hepatitis C : Reports: Renal Disease/Insufficiency, Other (See Below) Other Family History: Mother with fatal renal failure at age 68 Musculoskeletal: Reports: RA, Other (See Below) Other Musculoskeletal Family History: Terminal aunt with rheumatoid arthritis Neurological: Reports: CVA, Other (See Below) Other Neurological Family History: Mother with history of recurrent CVAs Endocrine/Metabolic: Reports: Diabetes, type II, Other (See Below) Other Endocrine/Metabolic Family History: Brother and paternal grandparents with diabetes mellitus Oncologic: Reports: Esophageal, Leukemia, Other (See Below) Other Oncologic Family History: 2 brothers with fatal esophageal cancer in her 70s possibly secondary to tobacco abuse, father with leukemia at age 80 - Tobacco Use Tobacco Use Status *Q: Former Tobacco User Tobacco Use Within Last Twelve Months: No Years of Tobacco use: 5 Packs/Tins Daily: 0.1 Packs/Tins Daily Comment: 1 cigarette/week between ages 23 and 28. Used Tobacco, but Quit: Yes Smoking Cessation Information Provided To Patient: No Second Hand Smoke Exposure: No Second Hand Smoke Education Provided: No - Caffeine Use Caffeine Use: Reports: Coffee (1 cup/day), Tea (Occasional). Denies: Energy Drinks, Soda - Alcohol Use Alcohol Use History: No Days Per Week of Alcohol Use: 0 Number of Drinks Per Day: 0 Total Drinks Per Week: 0 Total Drinks Per Week Comment: No previous DWIs, problems with alcohol abuse, etc. Alcohol Use in Last Twelve Months: No - Recreational Drug Use Recreational Drug Use: No Drug Use in Last 12 Months: No Recreational Drug Type: Denies: Amphetamines (Speed), Cocaine, Heroin, Inhalants (Glues, Solvents, Aerosols), LSD (Acid), Marijuana/Hashish, Methamphetamine, Morphine, Oxycodone - Living Situation & Occupation Living situation: Reports: ( in August 2008 after initial marriage in 1959. 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 ED EXAM, GENERAL - Physical Exam Exam: See Below Exam Limited By: No Limitations General Appearance: Alert, WD/WN, No Apparent Distress Eye Exam: Bilateral Eye: EOMI, Normal Inspection (The patient is wearing glasses. No vertigo or nystagmus.), PERRL Ears: Normal External Exam, Normal Canal, Hearing Grossly Normal, Normal TMs Nose: Normal Inspection, Normal Mucosa, No Blood Throat/Mouth: Normal Inspection, Normal Lips, Normal Teeth, Normal Gums, Normal Oropharynx, Normal Voice, No Airway Compromise. No: Dysphagia, Perioral Cyanosis Head: Atraumatic, Normocephalic. No: Facial Swelling, Facial Tenderness, Sinus Tenderness Neck: Supple, Non-Tender, Full Range of Motion, Carotid Bruit (Mild bilateral carotid bruits versus transmitted heart sounds). No: Lymphadenopathy (L), Lymphadenopathy (R), Thyromegaly Respiratory/Chest: No Respiratory Distress, Lungs Clear, Normal Breath Sounds, No Accessory Muscle Use, Chest Non-Tender. No: Pleural Rub, Retractions Cardiovascular: Normal Peripheral Pulses, Regular Rate, Rhythm, No Edema, No Gallop, No JVD, No Murmur, No Rub. No: Gallop/S3, Gallop/S4, Friction Rub Peripheral Pulses: 2+: Radial (L), Radial (R), Dorsalis Pedis (L), Dorsalis Pedis (R) GI/Abdominal: Normal Bowel Sounds, Soft, Non-Tender, No Organomegaly, No Distention, No Abnormal Bruit, No Mass. No: Guarding (Female) Exam: Deferred Rectal (Female) Exam: Deferred Back Exam: Normal Inspection, Full Range of Motion. No: CVA Tenderness (L), CVA Tenderness (R), Muscle Spasm Extremities: Normal Inspection, Normal Range of Motion, Non-Tender, No Pedal Edema, Normal Capillary Refill. No: Nic's Sign Neurological: Alert, Oriented, CN II-XII Intact, Normal Cognition, Normal Gait, Normal Reflexes (Negative Babinski's), No Motor/Sensory Deficits, Other (No clinical orthostasis) Psychiatric: Normal Affect, Normal Mood Skin Exam: Warm, Dry, Intact, Normal Color, No Rash. No: Diaphoretic, Wound/Incision Lymphatic: No Adenopathy #1 Interpretation EKG Date: 08/01/20 Time: 13:00 Rhythm: Other (100% paced) Rate (Beats/Min): 83 Comparison: NA - No Prior EKG (No post pacemaker implantation EKG available for comparison) EKG Interpretation Comments: 100% paced EKG Course - Vital Signs Last Recorded V/S: Last Vital Signs Temp 36.7 C 08/01/20 12:57 Pulse 81 08/01/20 17:05 Resp 20 08/01/20 17:05 BP 143/76 H 08/01/20 17:05 Pulse Ox 98 08/01/20 17:05 Vital Signs - 24 hr 08/01/20 08/01/20 08/01/20 12:57 13:25 15:36 Temperature [ 36.7 C Temporal] Pulse, 88 80 86 Peripheral [ Right Pulse Oximetry] Respiratory 20 20 20 Rate Blood Pressure 158/84 H 174/104 H 131/70 [Right Upper Arm] O2 Sat by Pulse 100 97 99 Oximetry 08/01/20 08/01/20 08/01/20 16:04 16:20 16:34 Temperature [ Temporal] Pulse, 83 84 83 Peripheral [ Right Pulse Oximetry] Respiratory 20 20 20 Rate Blood Pressure 145/77 H 127/69 153/74 H [Right Upper Arm] O2 Sat by Pulse 98 97 98 Oximetry 08/01/20 08/01/20 16:49 17:05 Temperature [ Temporal] Pulse, 83 81 Peripheral [ Right Pulse Oximetry] Respiratory 20 20 Rate Blood Pressure 147/75 H 143/76 H [Right Upper Arm] O2 Sat by Pulse 97 98 Oximetry - Orders/Labs/Meds Orders: Active Orders 24 hr Category Date Time Status Chest 1V Frontal [CR] Stat Exams 08/01/20 13:02 Taken PTH, INTACT [REF] Routine Lab 08/01/20 13:30 Received REFLEX LACTIC ACID YES OR NO [CHEM] Routine Lab 08/01/20 16:59 Received Isolation [COMM] Routine Oth 08/01/20 13:04 Active Obtain Past Medical Record [OM.PC] Urgent Oth 08/01/20 13:02 Active Peripheral IV Insertion Adult [OM.PC] Stat Oth 08/01/20 13:02 Ordered Resuscitation Status Stat Resus Stat 08/01/20 13:01 Ordered Labs: Laboratory Tests 08/01/20 08/01/20 08/01/20 Range/Units 13:12 13:25 13:25 WBC 6.7 (4.0-10.2) K/uL RBC 4.60 (3.77-5.09) M/uL Hgb 13.7 D (11.7-15.5) g/dL Hct 42.7 (34.0-46.0) % MCV 92.8 D (84.0-98.0) fL MCH 29.8 (28.2-33.3) pg MCHC 32.1 (31.7-36.0) g/dL RDW 14.9 H (11.2-14.1) % Plt Count 109 L (150-350) K/uL Neut % (Auto) 55.3 (45.0-80.0) % Lymph % (Auto) 35.8 (10.0-50.0) % [place] % (Auto) 6.9 (2.0-14.0) % Eos % (Auto) 1.7 (0.0-5.0) % Baso % (Auto) 0.3 (0.0-2.0) % Neut # (Auto) 3.68 (1.40-7.00) K/uL Lymph # (Auto) 2.38 (0.50-3.50) K/uL [place] # (Auto) 0.46 (0.00-1.00) K/uL Eos # (Auto) 0.11 (0.00-0.50) K/uL Baso # (Auto) 0.02 (0.00-0.20) K/uL PT 9.6 (9.5-12.0) SEC INR 1.0 APTT 20.9 L (24.5-32.8) SEC D-Dimer, Quantitative (0-400) ng/mL Sodium (136-145) mmol/L Potassium (3.5-5.1) mmol/L Chloride (98-107) mmol/L Carbon Dioxide (21.0-32.0) mmol/L BUN (7-18) mg/dL Creatinine (0.51-1.17) mg/dL Est Cr Clr Drug Dosing mL/min Estimated GFR (MDRD) mL/min Glucose (70-99) mg/dL Lactic Acid (0.4-2.0) mmol/L Uric Acid (2.6-7.2) mg/dL Calcium (8.5-10.1) mg/dL Phosphorus 2.3 L (2.6-4.7) mg/dL Magnesium (1.8-2.4) mg/dL Total Bilirubin (0.2-1.0) mg/dL AST (15-37) U/L ALT (12-78) U/L Alkaline Phosphatase (46-116) IU/L Creatine Kinase (26-308) U/L Creatine Kinase Index (0.0-2.5) % CK-MB (CK-2) (0.00-3.60) ng/mL Troponin I (0.000-0.056) ng/mL NT-Pro-B Natriuret Pep (0-125) pg/mL Total Protein (6.4-8.2) g/dL Albumin (3.4-5.0) g/dL Amylase (25-115) U/L Lipase (73-393) U/L TSH, Ultra Sensitive (0.358-3.740) mIU/mL SARS-CoV-2 RNA (ARABELLA) (NEGATIVE) 08/01/20 08/01/20 08/01/20 Range/Units 13:25 13:25 13:25 WBC (4.0-10.2) K/uL RBC (3.77-5.09) M/uL Hgb (11.7-15.5) g/dL Hct (34.0-46.0) % MCV (84.0-98.0) fL MCH (28.2-33.3) pg MCHC (31.7-36.0) g/dL RDW (11.2-14.1) % Plt Count (150-350) K/uL Neut % (Auto) (45.0-80.0) % Lymph % (Auto) (10.0-50.0) % [place] % (Auto) (2.0-14.0) % Eos % (Auto) (0.0-5.0) % Baso % (Auto) (0.0-2.0) % Neut # (Auto) (1.40-7.00) K/uL Lymph # (Auto) (0.50-3.50) K/uL [place] # (Auto) (0.00-1.00) K/uL Eos # (Auto) (0.00-0.50) K/uL Baso # (Auto) (0.00-0.20) K/uL PT (9.5-12.0) SEC INR APTT (24.5-32.8) SEC D-Dimer, Quantitative 143 (0-400) ng/mL Sodium 139 (136-145) mmol/L Potassium 4.8 (3.5-5.1) mmol/L Chloride 105 (98-107) mmol/L Carbon Dioxide 26.4 (21.0-32.0) mmol/L BUN 30 H (7-18) mg/dL Creatinine 0.87 (0.51-1.17) mg/dL Est Cr Clr Drug Dosing 33.34 mL/min Estimated GFR (MDRD) > 60 mL/min Glucose 129 H (70-99) mg/dL Lactic Acid 2.4 H (0.4-2.0) mmol/L Uric Acid 6.3 (2.6-7.2) mg/dL Calcium 10.6 H (8.5-10.1) mg/dL Phosphorus (2.6-4.7) mg/dL Magnesium 2.0 (1.8-2.4) mg/dL Total Bilirubin 0.6 (0.2-1.0) mg/dL AST 18 (15-37) U/L ALT 24 (12-78) U/L Alkaline Phosphatase 116 (46-116) IU/L Creatine Kinase 27 (26-308) U/L Creatine Kinase Index 2.6 H (0.0-2.5) % CK-MB (CK-2) 0.70 (0.00-3.60) ng/mL Troponin I 0.011 (0.000-0.056) ng/mL NT-Pro-B Natriuret Pep 477 H (0-125) pg/mL Total Protein 7.2 (6.4-8.2) g/dL Albumin 4.2 (3.4-5.0) g/dL Amylase 60 (25-115) U/L Lipase 67 L (73-393) U/L TSH, Ultra Sensitive 0.563 (0.358-3.740) mIU/mL SARS-CoV-2 RNA (ARABELLA) (NEGATIVE) 08/01/20 08/01/20 08/01/20 Range/Units 13:25 16:36 16:36 WBC (4.0-10.2) K/uL RBC (3.77-5.09) M/uL Hgb (11.7-15.5) g/dL Hct (34.0-46.0) % MCV (84.0-98.0) fL MCH (28.2-33.3) pg MCHC (31.7-36.0) g/dL RDW (11.2-14.1) % Plt Count (150-350) K/uL Neut % (Auto) (45.0-80.0) % Lymph % (Auto) (10.0-50.0) % [place] % (Auto) (2.0-14.0) % Eos % (Auto) (0.0-5.0) % Baso % (Auto) (0.0-2.0) % Neut # (Auto) (1.40-7.00) K/uL Lymph # (Auto) (0.50-3.50) K/uL [place] # (Auto) (0.00-1.00) K/uL Eos # (Auto) (0.00-0.50) K/uL Baso # (Auto) (0.00-0.20) K/uL PT (9.5-12.0) SEC INR APTT (24.5-32.8) SEC D-Dimer, Quantitative (0-400) ng/mL Sodium (136-145) mmol/L Potassium (3.5-5.1) mmol/L Chloride (98-107) mmol/L Carbon Dioxide (21.0-32.0) mmol/L BUN (7-18) mg/dL Creatinine (0.51-1.17) mg/dL Est Cr Clr Drug Dosing mL/min Estimated GFR (MDRD) mL/min Glucose (70-99) mg/dL Lactic Acid 2.3 H (0.4-2.0) mmol/L Uric Acid (2.6-7.2) mg/dL Calcium (8.5-10.1) mg/dL Phosphorus (2.6-4.7) mg/dL Magnesium (1.8-2.4) mg/dL Total Bilirubin (0.2-1.0) mg/dL AST (15-37) U/L ALT (12-78) U/L Alkaline Phosphatase (46-116) IU/L Creatine Kinase (26-308) U/L Creatine Kinase Index (0.0-2.5) % CK-MB (CK-2) (0.00-3.60) ng/mL Troponin I 0.025 (0.000-0.056) ng/mL NT-Pro-B Natriuret Pep (0-125) pg/mL Total Protein (6.4-8.2) g/dL Albumin (3.4-5.0) g/dL Amylase (25-115) U/L Lipase (73-393) U/L TSH, Ultra Sensitive (0.358-3.740) mIU/mL SARS-CoV-2 RNA (ARABELLA) Negative (NEGATIVE) Meds: Medications Discontinued Medications Generic Name Dose Route Start Last Admin Trade Name Romaineq PRN Reason Stop Dose Admin Aspirin 324 mg 08/01/20 13:01 08/01/20 13:06 Aspirin CHEW 08/01/20 13:02 324 mg ONETIME ONE Administration Famotidine 40 mg 08/01/20 13:01 08/01/20 13:06 Pepcid IVPUSH 08/01/20 13:02 40 mg ONETIME ONE Administration Famotidine 40 mg 08/01/20 13:35 08/01/20 13:48 Pepcid IVPUSH 08/01/20 13:36 Not Given ONETIME ONE Lactated Ringer's 1,000 mls @ 999 mls/hr 08/01/20 13:35 08/01/20 13:45 Ringers, Lactated IV 08/01/20 14:35 999 mls/hr .BOLUS ONE Administration Lactated Ringer's 1,000 mls @ 100 mls/hr 08/01/20 14:30 08/01/20 14:53 Ringers, Lactated IV 100 mls/hr ASDIRECTED LINDA Administration Pantoprazole Sodium 40 mg 08/01/20 13:35 08/01/20 13:45 Protonix Iv IVPUSH 08/01/20 13:36 40 mg ONETIME ONE Administration Sodium Chloride 10 ml 08/01/20 13:01 Saline Flush FLUSH ASDIRECTED PRN Keep Vein Open Ticagrelor 180 mg 08/01/20 13:01 08/01/20 13:06 Brilinta PO 08/01/20 13:02 180 mg ONETIME ONE Administration - Radiology Interpretation Free Text/Narrative:: sieve repairer shows 100% paced rhythm in the 70s to 80s with no ectopy or arrhythmia Chest x-ray, portable, shows mild to moderate pulmonary obstructive disease with mild cardiomegaly and prominence of the proximal aortic arch with no pulmonary infiltrates, pneumothorax, CHF, etc. Note intracardiac leadless pacemaker noted. Departure - Departure Time of Disposition: 17:45 Disposition: Home, Self-Care 01 Condition: Good Clinical Impression: CHF, Congestive heart failure, Peptic reflux disease, Dyslipidemia, Hypercalcem ia, Thrombocytopenia, Elevated lactic acid level Chest pain Qualifiers: Chest pain type: precordial pain Qualified Code(s): R07.2 - Precordial pain Diabetes mellitus Qualifiers: Diabetes mellitus type: type 2 Diabetes mellitus senior living insulin use: without senior living use Diabetes mellitus complication status: without complication Qualified Code(s): E11.9 - Type 2 diabetes mellitus without complications Pancreatitis Qualifiers: Chronicity: acute Pancreatitis type: other Acute pancreatitis complication: no infection or necrosis Qualified Code(s): K85.80 - Other acute pancreatitis without necrosis or infection Osteoarthritis Qualifiers: Osteoarthritis location: multiple joints Osteoarthritis type: primary Qualified Code(s): M89.49 - Other hypertrophic osteoarthropathy, multiple sites Hypertension Qualifiers: Hypertension type: essential hypertension Qualified Code(s): I10 - Essential (primary) hypertension Hypothyroid Qualifiers: Hypothyroidism type: unspecified Qualified Code(s): E03.9 - Hypothyroidism, unspecified - Discharge Information *PRESCRIPTION DRUG MONITORING PROGRAM REVIEWED*: Not Applicable *COPY OF PRESCRIPTION DRUG MONITORING REPORT IN PATIENT TAISHA: Not Applicable Referrals: PCP,Unknown [Ordering Only Provider] - Forms: ED Department Discharge Additional Instructions: 1. Followup with your regular provider on 08/04/2020 as directed for reevaluation and recommended repeat CBC, lactic acid level, BNP, troponin I, CK, and CK-MB comprehensive metabolic panel, lipase, and amylase. PTH results will still be pending at that time. Recommend that blood work be conducted at [facility] with results to be made known to you before you leave his office. Bring these discharge instructions with you to that visit. 2. [place] diet including encouragement of oral fluids such as sports drinks, etc. for 24-48 hours as directed. Advance to strict heart healthy, diverticulosis diet as tolerated thereafter. 3. Otherwise follow-up with your economic forecaster as already scheduled 4. Immediately after this visit verify that your cellular telephone's voicemail has been activated and is empty. Also verify that your home telephone's answering machine is operating properly and has space to receive messages. Note that it is sometimes necessary for us to be able to contact you at a later date to discuss your medical care. 5. Please remember that we are ALWAYS here for you and want to answer any questions you may have. Feel free to call the hospital any time and we call you back ROSALIO. Sepsis Event Note (ED) - Focused Exam Vital Signs: Vital Signs Temp Pulse Resp BP Pulse Ox 08/01/20 17:05 81 20 143/76 H 98 08/01/20 16:49 83 20 147/75 H 97 08/01/20 16:34 83 20 153/74 H 98 08/01/20 16:20 84 20 127/69 97 08/01/20 16:04 83 20 145/77 H 98 08/01/20 15:36 86 20 131/70 99 08/01/20 13:25 80 20 174/104 H 97 08/01/20 12:57 36.7 C 88 20 158/84 H 100 - Problem List & Annotations (1) Chest pain SNOMED Code(s): 26350841 Code(s): R07.9 - CHEST PAIN, UNSPECIFIED Status: Acute Priority: High Onset Date: 08/01/20 Annotation/Comment:: Atypical chest pain type symptoms with shoulder and arm pain nonreproducible with movement. Note recent completely normal heart catheterization on 07/18/2020. EKG showed 100% paced rhythm with otherwise normal cardiac enzymes with the exception of BNP and troponin I, which is still normal, as below. Secondary to normal recent heart catheterization hospitalizations for acute rule out of [place] is not warranted. Note artifactually elevated CK index secondary to low baseline CK. Qualifiers: Chest pain type: precordial pain Qualified Code(s): R07.2 - Precordial pain (2) CHF, Congestive heart failure SNOMED Code(s): 37276470 Code(s): I50.9 - HEART FAILURE, UNSPECIFIED Status: Chronic Priority: Med iu Annotation/Comment:: Mild BNP elevation with secondary change in troponin I, however no clinical evidence of significant CHF. Note previous echocardiogram on 06/22/2016 with repeat evaluation depending on clinical course. Patient did have a heart catheterization on 07/18/2020. She already has a follow-up appointment scheduled with her economic forecaster next week. Mild increase in troponin I, which is still normal and BNP secondary to IV fluids given in the emergency room as below. Close follow-up by her regular provider as per discharge instructions. Various therapeutic options were discussed with the patient and her son with both parties requesting to continue to observe these on an outpatient basis with no hospitalization at this time per their request. (3) Pancreatitis SNOMED Code(s): 97821419 Code(s): K85.9 - ACUTE PANCREATITIS, UNSPECIFIED * DO NOT USE * Status: Chronic Priority: High Onset Date: ~12/16/15 Annotation/Comment:: Patient has long history of intermittent pancreatitis. High-dose IV Pepcid and IV Protonix given in the emergency room as GI prophylaxis. Lipase and amylase are normal with no evidence of recurrent pancreatitis at this time. Dietary issues were once again discussed. Qualifiers: Chronicity: acute Pancreatitis type: other Acute pancreatitis complication: no infection or necrosis Qualified Code(s): K85.80 - Other acute pancreatitis without necrosis or infection (4) Elevated lactic acid level SNOMED Code(s): 7202754 Code(s): R79.89 - OTHER SPECIFIED ABNORMAL FINDINGS OF BLOOD CHEMISTRY Status: Acute Priority: High Onset Date: 08/01/20 Annotation/Comment:: No clinical evidence of sepsis with normal chest x-ray, no leukocytosis, and patient afebrile at this time. 1 L IV bolus of lactated Ringer's was given initially with repeat 1 L also started however not completed with only 200 additional milliliters administered prior to discharge. Repeat lactic acid level as per standard sepsis protocol showed no significant change. Continue to observe closely on an outpatient basis per the patient's request as above. No indication for antibiotics or blood cultures at this time. (5) Hypercalcemia SNOMED Code(s): 49633734 Code(s): E83.52 - HYPERCALCEMIA Status: Chronic Priority: Medium Annotation/Comment:: PTH drawn with results pending. Continue to observe closely by regular provider with further work-up depending on her clinical course. Chronic problem. Consider whole-body bone scan depending on her clinical course in light of her previous history of cancer as above. (6) Diabetes mellitus SNOMED Code(s): 38593273 Code(s): E11.9 - TYPE 2 DIABETES MELLITUS WITHOUT COMPLICATIONS Status: ron Priority: Medium Annotation/Comment:: Stable by history Qualifiers: Diabetes mellitus type: type 2 Diabetes mellitus superintendent terminal insulin use: without senior living use Diabetes mellitus complication status: without complication Qualified Code(s): E11.9 - Type 2 diabetes mellitus without complications (7) Hypertension SNOMED Code(s): 43724882 Code(s): I10 - ESSENTIAL (PRIMARY) HYPERTENSION Status: Chronic Priority: Medium Annotation/Comment:: Blood pressure somewhat elevated in the emergency room. Continue to observe closely by her regular provider. Qualifiers: Hypertension type: essential hypertension Qualified Code(s): I10 - Essential (primary) hypertension (8) Osteoarthritis SNOMED Code(s): 271028297 Code(s): M19.90 - UNSPECIFIED OSTEOARTHRITIS, UNSPECIFIED SITE Status: Chronic Priority: Medium Annotation/Comment:: Stable by history Qualifiers: Osteoarthritis location: multiple joints Osteoarthritis type: primary Qualified Code(s): M89.49 - Other hypertrophic osteoarthropathy, multiple sites (9) Peptic reflux disease SNOMED Code(s): 076535271 Code(s): K21.9 - GASTRO-ESOPHAGEAL REFLUX DISEASE WITHOUT ESOPHAGITIS Status: Chronic Priority: Low Annotation/Comment:: Stable per patient history with no evidence of acute GI bleed. IV Pepcid and IV Protonix given as above. (10) Thrombocytopenia SNOMED Code(s): 361209383 Code(s): D69.6 - THROMBOCYTOPENIA, UNSPECIFIED Status: Chronic Priority: Medium Annotation/Comment:: Chronic. Close follow-up by regular providers. - Problem List Review Problem List Initiated/Reviewed/Updated: Yes - My Orders Last 24 Hours: My Active Orders 08/01/20 13:01 Resuscitation Status Stat 08/01/20 13:02 Chest 1V Frontal [CR] Stat Obtain Past Medical Record [OM.PC] Urgent Peripheral IV Insertion Adult [OM.PC] Stat 08/01/20 13:04 Isolation [COMM] Routine 08/01/20 13:30 PTH, INTACT [REF] Routine 08/01/20 16:59 REFLEX LACTIC ACID YES OR NO [CHEM] Routine - Assessment/Plan Last 24 Hours: My Active Orders 08/01/20 13:01 Resuscitation Status Stat 08/01/20 13:02 Chest 1V Frontal [CR] Stat Obtain Past Medical Record [OM.PC] Urgent Peripheral IV Insertion Adult [OM.PC] Stat 08/01/20 13:04 Isolation [COMM] Routine 08/01/20 13:30 PTH, INTACT [REF] Routine 08/01/20 16:59 REFLEX LACTIC ACID YES OR NO [CHEM] Routine Assessment:: As above Plan: As above. Extensive precautions were given to the patient and her sons, who are in agreement with the treatment plan. See Patient Instructions for further treatment and plan.
[2020-08-01] MEDS ORDERED: Lactated Ringers 1,000 ML IV ONE (13:35)
[2020-08-01] MEDS ORDERED: Pantoprazole 40 MG Vial IVPUSH ONE (13:35)
[2020-08-01 13:42] LABS: PTT,PARTIAL THROMBOPLSTIN TIME 20.9 SEC (24.5-32.8)
[2020-08-01 13:54] LABS: CHLORIDE,CL 105 mmol/L (98-107); SODIUM,NA 139 mmol/L (136-145)
[2020-08-01] MEDS ORDERED: Lactated Ringers 1,000 ML IV SCH (14:30)
[2020-08-01 18:01] VITALS: BP 143/76; PULSE 81
== END 2020-08-01 17:50 | disposition home or self-care (01) ==
LOC: LL.ED 12:57
DX: I11.0 Hypertensive heart disease with heart failure (principal); I50.9 Heart failure, unspecified; K21.9 Gastro-esophageal reflux disease without esophagitis; E78.5 Hyperlipidemia, unspecified; R74.02 Elevation of levels of lactic acid dehydrogenase [LDH]; E83.52 Hypercalcemia; D69.6 Thrombocytopenia, unspecified; I25.2 Old myocardial infarction; E11.9 Type 2 diabetes mellitus without complications; E03.9 Hypothyroidism, unspecified; M19.90 Unspecified osteoarthritis, unspecified site; E11.51 Type 2 diabetes mellitus with diabetic peripheral angiopathy without gangrene; J44.9 Chronic obstructive pulmonary disease, unspecified; E11.42 Type 2 diabetes mellitus with diabetic polyneuropathy; Z20.822 Contact with and (suspected) exposure to COVID-19; Z86.73 Personal history of transient ischemic attack (TIA), and cerebral infarction without residual deficits; Z87.891 Personal history of nicotine dependence; Z79.82 Long term (current) use of aspirin; Z79.84 Long term (current) use of oral hypoglycemic drugs; Z79.899 Other long term (current) drug therapy
CPT/HCPCS: 36415; 71045; 80053; 82150; 82550; 82553; 83605; 83690; 83735; 83880; 83970; 84100; 84443; 84484; 84550; 85025; 85379; 85610; 85730; 87804; 93005; 93010; 96361; 96374; 96375; 99284; 99285-25; A9270-GY; C9113; J3490; J7120; U0002

== ENCOUNTER 2022-10-09 13:00 | Emergency (ER) | payer MEDICARE ==
[2022-10-09] MEDS ORDERED: Sodium Chloride 0.9% 10 ML Syringe FLUSH PRN (13:53)
[2022-10-09 14:00] LABS: ALANINE AMINOTRANSFERASE,ALT 31 U/L (12-78); ALBUMIN 4.1 g/dL (3.4-5.0); ALKALINE PHOSPHATASE 98 IU/L (46-116); ANION GAP 8.3 meq/L (7-15); ASPARTATE AMNIOTRANSFERASE,AST 25 U/L (15-37); BLOOD UREA NITROGEN,BUN 24 mg/dL (7-18); CALCIUM 10.6 mg/dL (8.5-10.1); CARBON DIOXIDE,CO2 26.7 mmol/L (21.0-32.0); CHLORIDE,CL 104 mmol/L (98-107); CREATININE 0.91 mg/dL (0.51-1.17); GLUCOSE RANDOM 120 mg/dL (70-99); POTASSIUM,K 4.5 mmol/L (3.5-5.1); SODIUM,NA 139 mmol/L (136-145)
[2022-10-09 14:03] LABS: BASOPHILS ABSOLUTE AUTO 0.02 K/uL (0.00-0.20); BASOPHILS PERCENT AUTO 0.2 % (0.0-2.0); EOSINOPHILS ABSOLUTE AUTO 0.07 K/uL (0.00-0.50); EOSINOPHILS PERCENT AUTO 0.6 % (0.0-5.0); HEMATOCRIT 45.5 % (34.0-46.0); HEMOGLOBIN 14.7 g/dL (11.7-15.5); LYMPHOCYTES ABSOLUTE AUTO 2.47 K/uL (0.50-3.50); LYMPHOCYTES PERCENT AUTO 21.8 % (10.0-50.0); MEAN CORPUSCULAR HEMOGLOBIN 30.1 pg (28.2-33.3); MEAN CORPUSCULAR HGB CONC 32.3 g/dL (31.7-36.0); MONOCYTES ABSOLUTE AUTO 0.61 K/uL (0.00-1.00); MONOCYTES PERCENT AUTO 5.4 % (2.0-14.0); NEUTROPHILS ABSOLUTE AUTO 8.17 K/uL (1.40-7.00); PLATELET COUNT,PLT 151 K/uL (150-350); RED BLOOD CELL COUNT 4.89 M/uL (3.77-5.09); RED CELL DISTRIBUTION WIDTH 14.7 % (11.2-14.1); WHITE BLOOD CELL COUNT,WBC 11.3 K/uL (4.0-10.2)
[2022-10-09 14:05] LABS: ESTIMATED GFR 61 mL/min (>=60); MAGNESIUM 1.7 mg/dL (1.8-2.4)
[2022-10-09] MEDS ORDERED: fentaNYL 50 MCG/ML SDV IVPUSH ONE ×3 (14:40→16:45)
[2022-10-09 15:02] LABS: APPEARANCE,URINE CLEAR; BILIRUBIN,URINE NEGATIVE (NEGATIVE); COLOR,URINE YELLOW; GLUCOSE,URINE NEGATIVE (NEGATIVE); KETONES,URINE NEGATIVE (NEGATIVE); LEUKOCYTE ESTERASE,URINE NEGATIVE (NEGATIVE); NITRITE,URINE NEGATIVE (NEGATIVE); OCCULT BLOOD,URINE TRACE-INTACT (NEGATIVE); PH,URINE 7.5 (5.0-9.0); PROTEIN,URINE NEGATIVE (NEGATIVE); UROBILINOGEN,URINE 0.2 E.U./dL (0.2-1.0)
[2022-10-09 15:09] LABS: RBC,URINE 0-5 /HPF
[2022-10-09 15:10] LABS: BACTERIA,URINE FEW /HPF (NONE TO FEW); EPITHELIAL CELLS,URINE FEW /LPF
[2022-10-09 16:17] VITALS: BP 123/110; PULSE 104
== END 2022-10-09 17:17 ==
LOC: LL.ED 13:00
DX: S32.412A Displaced fracture of anterior wall of left acetabulum, initial encounter for closed fracture (principal); S32.411A Displaced fracture of anterior wall of right acetabulum, initial encounter for closed fracture; S32.10XA Unspecified fracture of sacrum, initial encounter for closed fracture; S32.591A Other specified fracture of right pubis, initial encounter for closed fracture; E11.42 Type 2 diabetes mellitus with diabetic polyneuropathy; E03.9 Hypothyroidism, unspecified; E78.00 Pure hypercholesterolemia, unspecified; I11.0 Hypertensive heart disease with heart failure; I50.9 Heart failure, unspecified; J44.9 Chronic obstructive pulmonary disease, unspecified; Z95.0 Presence of cardiac pacemaker; Z88.0 Allergy status to penicillin; Z88.8 Allergy status to other drugs, medicaments and biological substances; Z88.1 Allergy status to other antibiotic agents; Z79.82 Long term (current) use of aspirin; Z79.899 Other long term (current) drug therapy; Z79.84 Long term (current) use of oral hypoglycemic drugs; W19.XXXA Unspecified fall, initial encounter; Y92.009 Unspecified place in unspecified non-institutional (private) residence as the place of occurrence of the external cause
CPT/HCPCS: 36415; 70450; 72125; 72192; 80053; 81001; 83735; 85025; 96374; 96376; 99285; 99285-25; J3010

== ENCOUNTER 2022-10-13 09:55 | Inpatient (IN) | payer MEDICARE ==
[2022-10-13] MEDS ORDERED: Polyethylene Glycol 3350 Powder 17 GM Packet PO PRN (14:58)
[2022-10-13] MEDS: Acetaminophen 500 MG Tab PO PRN (15:25)
[2022-10-13] MEDS ORDERED: Polyvinyl Alcohol 1.4% Ophth Soln 15 ML Bottle EYEBOTH PRN (15:57)
[2022-10-13] MEDS: Magnesium Oxide 400 MG Tab PO SCH (17:32)
[2022-10-13] MEDS: Amylase/Lipase/Protease 12,000 Unit Cap.CR PO SCH (17:32)
[2022-10-13] MEDS: metFORMIN 500 MG Tab PO SCH (17:32)
[2022-10-13] MEDS: Enoxaparin 40 MG/0.4 ML Syringe SUBCUT SCH (18:45)
[2022-10-14] MEDS: oxyCODONE 5 MG Tab PO PRN ×3 (02:07→23:22)
[2022-10-14] MEDS: Amylase/Lipase/Protease 12,000 Unit Cap.CR PO SCH ×3 (07:47→17:23)
[2022-10-14] MEDS: Omeprazole 20 MG Cap.CR PO SCH (07:47)
[2022-10-14] MEDS: metFORMIN 500 MG Tab PO SCH ×2 (07:47→17:23)
[2022-10-14] MEDS: Magnesium Oxide 400 MG Tab PO SCH ×3 (07:47→17:23)
[2022-10-14] MEDS: Levothyroxine 50 MCG Tab PO SCH (07:47)
[2022-10-14] MEDS: Aspirin 81 MG Tab.EC PO SCH (07:47)
[2022-10-14] MEDS: Ferrous Sulfate 325 MG Tab PO SCH (07:47)
[2022-10-14] MEDS: Enoxaparin 40 MG/0.4 ML Syringe SUBCUT SCH (07:47)
[2022-10-14] MEDS ORDERED: Polyethylene Glycol 3350 Powder 510 GM Bot PO PRN (10:49)
[2022-10-14] MEDS: Acetaminophen 500 MG Tab PO PRN (11:52)
[2022-10-14 12:05] LABS: GLUCOSE,POC 89 mg/dL (70-99)
[2022-10-15] MEDS: Acetaminophen 500 MG Tab PO PRN (04:23)
[2022-10-15 07:43] LABS: GLUCOSE,POC 91 mg/dL (70-99)
[2022-10-15] MEDS: metFORMIN 500 MG Tab PO SCH ×2 (08:27→17:40)
[2022-10-15] MEDS: Omeprazole 20 MG Cap.CR PO SCH (08:27)
[2022-10-15] MEDS: Magnesium Oxide 400 MG Tab PO SCH ×3 (08:27→17:41)
[2022-10-15] MEDS: Amylase/Lipase/Protease 12,000 Unit Cap.CR PO SCH ×3 (08:27→17:40)
[2022-10-15] MEDS: Aspirin 81 MG Tab.EC PO SCH (08:28)
[2022-10-15] MEDS: Levothyroxine 50 MCG Tab PO SCH (08:28)
[2022-10-15] MEDS: Enoxaparin 40 MG/0.4 ML Syringe SUBCUT SCH (08:28)
[2022-10-15] MEDS: Ferrous Sulfate 325 MG Tab PO SCH (08:28)
[2022-10-15] MEDS: oxyCODONE 5 MG Tab PO PRN (08:35)
[2022-10-16] MEDS: oxyCODONE 5 MG Tab PO PRN ×3 (03:49→20:41)
[2022-10-16] MEDS: Amylase/Lipase/Protease 12,000 Unit Cap.CR PO SCH ×3 (08:27→17:27)
[2022-10-16] MEDS: Ferrous Sulfate 325 MG Tab PO SCH (08:28)
[2022-10-16] MEDS: metFORMIN 500 MG Tab PO SCH ×2 (08:28→17:27)
[2022-10-16] MEDS: Enoxaparin 40 MG/0.4 ML Syringe SUBCUT SCH (08:29)
[2022-10-16] MEDS: Aspirin 81 MG Tab.EC PO SCH (08:29)
[2022-10-16] MEDS: Omeprazole 20 MG Cap.CR PO SCH (08:30)
[2022-10-16] MEDS: Magnesium Oxide 400 MG Tab PO SCH ×3 (08:30→17:28)
[2022-10-16] MEDS: Levothyroxine 50 MCG Tab PO SCH (08:31)
[2022-10-16] MEDS: Acetaminophen 500 MG Tab PO PRN ×2 (08:31→23:47)
[2022-10-16] MEDS ORDERED: Bisacodyl 10 MG Supp RECTAL PRN (09:50)
[2022-10-17] MEDS: oxyCODONE 5 MG Tab PO PRN ×3 (08:17→20:23)
[2022-10-17] MEDS: Amylase/Lipase/Protease 12,000 Unit Cap.CR PO SCH ×3 (08:18→17:23)
[2022-10-17] MEDS: Ferrous Sulfate 325 MG Tab PO SCH (08:18)
[2022-10-17] MEDS: metFORMIN 500 MG Tab PO SCH ×2 (08:19→17:23)
[2022-10-17] MEDS: Enoxaparin 40 MG/0.4 ML Syringe SUBCUT SCH (08:20)
[2022-10-17] MEDS: Aspirin 81 MG Tab.EC PO SCH (08:20)
[2022-10-17] MEDS: Magnesium Oxide 400 MG Tab PO SCH ×3 (08:20→17:24)
[2022-10-17] MEDS: Polyethylene Glycol 3350 Powder 510 GM Bot PO SCH (08:21)
[2022-10-17] MEDS: Omeprazole 20 MG Cap.CR PO SCH (08:21)
[2022-10-17] MEDS: Levothyroxine 50 MCG Tab PO SCH (08:22)
[2022-10-18] MEDS: oxyCODONE 5 MG Tab PO PRN ×4 (07:16→21:26)
[2022-10-18] MEDS: Amylase/Lipase/Protease 12,000 Unit Cap.CR PO SCH ×3 (07:17→17:17)
[2022-10-18] MEDS: metFORMIN 500 MG Tab PO SCH ×2 (07:17→17:18)
[2022-10-18] MEDS: Ferrous Sulfate 325 MG Tab PO SCH (07:17)
[2022-10-18] MEDS: Enoxaparin 40 MG/0.4 ML Syringe SUBCUT SCH (07:17)
[2022-10-18] MEDS: Magnesium Oxide 400 MG Tab PO SCH ×3 (07:18→17:18)
[2022-10-18] MEDS: Polyethylene Glycol 3350 Powder 510 GM Bot PO SCH (07:18)
[2022-10-18] MEDS: Aspirin 81 MG Tab.EC PO SCH (07:18)
[2022-10-18] MEDS: Omeprazole 20 MG Cap.CR PO SCH (07:19)
[2022-10-18] MEDS: Levothyroxine 50 MCG Tab PO SCH (07:19)
[2022-10-19] MEDS: oxyCODONE 5 MG Tab PO PRN ×3 (01:45→19:35)
[2022-10-19] MEDS: metFORMIN 500 MG Tab PO SCH ×2 (08:13→18:06)
[2022-10-19] MEDS: Levothyroxine 50 MCG Tab PO SCH (08:13)
[2022-10-19] MEDS: Amylase/Lipase/Protease 12,000 Unit Cap.CR PO SCH ×3 (08:13→18:07)
[2022-10-19] MEDS: Ferrous Sulfate 325 MG Tab PO SCH (08:14)
[2022-10-19] MEDS: Aspirin 81 MG Tab.EC PO SCH (08:14)
[2022-10-19] MEDS: Omeprazole 20 MG Cap.CR PO SCH (08:14)
[2022-10-19] MEDS: Enoxaparin 40 MG/0.4 ML Syringe SUBCUT SCH (08:15)
[2022-10-19] MEDS: Magnesium Oxide 400 MG Tab PO SCH ×3 (08:15→18:07)
[2022-10-19] MEDS: Polyethylene Glycol 3350 Powder 510 GM Bot PO SCH (08:16)
[2022-10-19] MEDS: Acetaminophen 500 MG Tab PO PRN (10:46)
[2022-10-20] MEDS: Ondansetron 4 MG Tab.DIS PO PRN ×2 (04:01→08:13)
[2022-10-20] MEDS: oxyCODONE 5 MG Tab PO PRN ×4 (04:08→21:18)
[2022-10-20] MEDS: Acetaminophen 500 MG Tab PO PRN (05:58)
[2022-10-20] MEDS: Amylase/Lipase/Protease 12,000 Unit Cap.CR PO SCH ×3 (07:58→17:23)
[2022-10-20] MEDS: Ferrous Sulfate 325 MG Tab PO SCH (07:58)
[2022-10-20] MEDS: metFORMIN 500 MG Tab PO SCH ×2 (07:59→17:24)
[2022-10-20] MEDS: Enoxaparin 40 MG/0.4 ML Syringe SUBCUT SCH (08:01)
[2022-10-20] MEDS: Aspirin 81 MG Tab.EC PO SCH (08:01)
[2022-10-20] MEDS: Magnesium Oxide 400 MG Tab PO SCH ×3 (08:05→17:25)
[2022-10-20] MEDS: Omeprazole 20 MG Cap.CR PO SCH (08:06)
[2022-10-20] MEDS: Polyethylene Glycol 3350 Powder 510 GM Bot PO SCH (08:06)
[2022-10-20] MEDS: Levothyroxine 50 MCG Tab PO SCH (08:07)
[2022-10-21] MEDS: oxyCODONE 5 MG Tab PO PRN ×2 (04:19→12:04)
[2022-10-21] MEDS: Amylase/Lipase/Protease 12,000 Unit Cap.CR PO SCH ×3 (07:27→17:12)
[2022-10-21] MEDS: Ferrous Sulfate 325 MG Tab PO SCH (07:28)
[2022-10-21] MEDS: metFORMIN 500 MG Tab PO SCH ×2 (07:29→17:11)
[2022-10-21] MEDS: Enoxaparin 40 MG/0.4 ML Syringe SUBCUT SCH (07:30)
[2022-10-21] MEDS: Aspirin 81 MG Tab.EC PO SCH (07:30)
[2022-10-21] MEDS: Polyethylene Glycol 3350 Powder 510 GM Bot PO SCH (07:31)
[2022-10-21] MEDS: Magnesium Oxide 400 MG Tab PO SCH ×3 (07:31→17:11)
[2022-10-21] MEDS: Omeprazole 20 MG Cap.CR PO SCH (07:32)
[2022-10-21] MEDS: Levothyroxine 50 MCG Tab PO SCH (07:32)
[2022-10-22] MEDS: oxyCODONE 5 MG Tab PO PRN ×3 (01:58→20:38)
[2022-10-22] MEDS: Ferrous Sulfate 325 MG Tab PO SCH (07:45)
[2022-10-22] MEDS: Amylase/Lipase/Protease 12,000 Unit Cap.CR PO SCH ×3 (07:45→17:36)
[2022-10-22] MEDS: metFORMIN 500 MG Tab PO SCH ×2 (07:46→17:36)
[2022-10-22] MEDS: Aspirin 81 MG Tab.EC PO SCH (07:47)
[2022-10-22] MEDS: Enoxaparin 40 MG/0.4 ML Syringe SUBCUT SCH (07:47)
[2022-10-22] MEDS: Magnesium Oxide 400 MG Tab PO SCH ×3 (07:47→17:37)
[2022-10-22] MEDS: Levothyroxine 50 MCG Tab PO SCH (07:48)
[2022-10-22] MEDS: Polyethylene Glycol 3350 Powder 510 GM Bot PO SCH (07:48)
[2022-10-22] MEDS: Omeprazole 20 MG Cap.CR PO SCH (07:49)
[2022-10-22] MEDS: Acetaminophen 500 MG Tab PO PRN (08:07)
[2022-10-22] MEDS ORDERED: Acetaminophen 500 MG Tab PO PRN (11:29)
[2022-10-22] MEDS: Acetaminophen 500 MG Tab PO SCH (19:07)
[2022-10-23] MEDS: Ferrous Sulfate 325 MG Tab PO SCH (07:26)
[2022-10-23] MEDS: Polyethylene Glycol 3350 Powder 510 GM Bot PO SCH (07:26)
[2022-10-23] MEDS: Aspirin 81 MG Tab.EC PO SCH (07:26)
[2022-10-23] MEDS: Omeprazole 20 MG Cap.CR PO SCH (07:26)
[2022-10-23] MEDS: metFORMIN 500 MG Tab PO SCH ×2 (07:27→17:22)
[2022-10-23] MEDS: Amylase/Lipase/Protease 12,000 Unit Cap.CR PO SCH ×3 (07:27→17:22)
[2022-10-23] MEDS: Levothyroxine 50 MCG Tab PO SCH (07:27)
[2022-10-23] MEDS: Enoxaparin 40 MG/0.4 ML Syringe SUBCUT SCH (07:28)
[2022-10-23] MEDS: Acetaminophen 500 MG Tab PO SCH ×2 (07:29→19:24)
[2022-10-23] MEDS: Magnesium Oxide 400 MG Tab PO SCH ×3 (07:29→17:22)
[2022-10-23] MEDS: oxyCODONE 5 MG Tab PO PRN ×2 (12:15→22:24)
[2022-10-24] MEDS: Aspirin 81 MG Tab.EC PO SCH (07:14)
[2022-10-24] MEDS: Amylase/Lipase/Protease 12,000 Unit Cap.CR PO SCH ×3 (07:14→17:24)
[2022-10-24] MEDS: metFORMIN 500 MG Tab PO SCH ×2 (07:14→17:24)
[2022-10-24] MEDS: Omeprazole 20 MG Cap.CR PO SCH (07:15)
[2022-10-24] MEDS: Enoxaparin 40 MG/0.4 ML Syringe SUBCUT SCH (07:15)
[2022-10-24] MEDS: Levothyroxine 50 MCG Tab PO SCH (07:15)
[2022-10-24] MEDS: Polyethylene Glycol 3350 Powder 510 GM Bot PO SCH (07:16)
[2022-10-24] MEDS: Magnesium Oxide 400 MG Tab PO SCH ×3 (07:16→17:24)
[2022-10-24] MEDS: Acetaminophen 500 MG Tab PO SCH ×2 (07:16→19:26)
[2022-10-24] MEDS: Ferrous Sulfate 325 MG Tab PO SCH (07:16)
[2022-10-24] MEDS: oxyCODONE 5 MG Tab PO PRN (13:23)
[2022-10-25] MEDS: metFORMIN 500 MG Tab PO SCH ×2 (07:29→17:05)
[2022-10-25] MEDS: Omeprazole 20 MG Cap.CR PO SCH (07:29)
[2022-10-25] MEDS: Aspirin 81 MG Tab.EC PO SCH (07:29)
[2022-10-25] MEDS: Amylase/Lipase/Protease 12,000 Unit Cap.CR PO SCH ×3 (07:29→17:04)
[2022-10-25] MEDS: Enoxaparin 40 MG/0.4 ML Syringe SUBCUT SCH (07:30)
[2022-10-25] MEDS: Levothyroxine 50 MCG Tab PO SCH (07:30)
[2022-10-25] MEDS: Magnesium Oxide 400 MG Tab PO SCH ×3 (07:31→17:04)
[2022-10-25] MEDS: Acetaminophen 500 MG Tab PO SCH ×2 (07:31→19:04)
[2022-10-25] MEDS: Polyethylene Glycol 3350 Powder 510 GM Bot PO SCH (07:31)
[2022-10-25] MEDS: Ferrous Sulfate 325 MG Tab PO SCH (07:31)
[2022-10-25] MEDS: oxyCODONE 5 MG Tab PO PRN ×2 (15:58→22:30)
[2022-10-26] MEDS: Enoxaparin 40 MG/0.4 ML Syringe SUBCUT SCH (08:06)
[2022-10-26] MEDS: Ferrous Sulfate 325 MG Tab PO SCH (08:07)
[2022-10-26] MEDS: Amylase/Lipase/Protease 12,000 Unit Cap.CR PO SCH ×3 (08:08→17:19)
[2022-10-26] MEDS: metFORMIN 500 MG Tab PO SCH ×2 (08:08→17:20)
[2022-10-26] MEDS: Aspirin 81 MG Tab.EC PO SCH (08:08)
[2022-10-26] MEDS: Polyethylene Glycol 3350 Powder 510 GM Bot PO SCH (08:09)
[2022-10-26] MEDS: Magnesium Oxide 400 MG Tab PO SCH ×3 (08:09→17:20)
[2022-10-26] MEDS: Levothyroxine 50 MCG Tab PO SCH (08:09)
[2022-10-26] MEDS: Omeprazole 20 MG Cap.CR PO SCH (08:09)
[2022-10-26] MEDS: Acetaminophen 500 MG Tab PO SCH ×2 (08:11→20:14)
[2022-10-26] MEDS: oxyCODONE 5 MG Tab PO PRN ×2 (08:19→23:53)
[2022-10-26] MEDS: Ondansetron 4 MG Tab.DIS PO PRN (08:57)
[2022-10-27] MEDS: oxyCODONE 5 MG Tab PO PRN (07:52)
[2022-10-27] MEDS: Ondansetron 4 MG Tab.DIS PO PRN ×2 (07:56→13:43)
[2022-10-27] MEDS: Enoxaparin 40 MG/0.4 ML Syringe SUBCUT SCH (07:57)
[2022-10-27] MEDS: Amylase/Lipase/Protease 12,000 Unit Cap.CR PO SCH ×3 (07:57→17:28)
[2022-10-27] MEDS: Ferrous Sulfate 325 MG Tab PO SCH (07:58)
[2022-10-27] MEDS: Aspirin 81 MG Tab.EC PO SCH (07:58)
[2022-10-27] MEDS: metFORMIN 500 MG Tab PO SCH ×2 (07:59→17:29)
[2022-10-27] MEDS: Magnesium Oxide 400 MG Tab PO SCH ×3 (07:59→17:29)
[2022-10-27] MEDS: Levothyroxine 50 MCG Tab PO SCH (08:00)
[2022-10-27] MEDS: Omeprazole 20 MG Cap.CR PO SCH (08:00)
[2022-10-27] MEDS: Acetaminophen 500 MG Tab PO SCH ×2 (08:01→19:09)
[2022-10-27] MEDS: Polyethylene Glycol 3350 Powder 510 GM Bot PO SCH (08:04)
[2022-10-28] MEDS: oxyCODONE 5 MG Tab PO PRN ×3 (01:50→20:02)
[2022-10-28] MEDS: Enoxaparin 40 MG/0.4 ML Syringe SUBCUT SCH (07:48)
[2022-10-28] MEDS: Amylase/Lipase/Protease 12,000 Unit Cap.CR PO SCH ×3 (07:49→17:15)
[2022-10-28] MEDS: Ferrous Sulfate 325 MG Tab PO SCH (07:49)
[2022-10-28] MEDS: metFORMIN 500 MG Tab PO SCH ×2 (07:49→17:16)
[2022-10-28] MEDS: Aspirin 81 MG Tab.EC PO SCH (07:50)
[2022-10-28] MEDS: Magnesium Oxide 400 MG Tab PO SCH ×3 (07:50→17:16)
[2022-10-28] MEDS: Omeprazole 20 MG Cap.CR PO SCH (07:51)
[2022-10-28] MEDS: Levothyroxine 50 MCG Tab PO SCH (07:51)
[2022-10-28] MEDS: Polyethylene Glycol 3350 Powder 510 GM Bot PO SCH (07:51)
[2022-10-28] MEDS: Acetaminophen 500 MG Tab PO SCH ×2 (07:52→19:09)
[2022-10-29] MEDS: oxyCODONE 5 MG Tab PO PRN ×2 (04:38→20:45)
[2022-10-29] MEDS: Omeprazole 20 MG Cap.CR PO SCH (07:58)
[2022-10-29] MEDS: Levothyroxine 50 MCG Tab PO SCH (07:58)
[2022-10-29] MEDS: metFORMIN 500 MG Tab PO SCH ×2 (07:59→17:43)
[2022-10-29] MEDS: Amylase/Lipase/Protease 12,000 Unit Cap.CR PO SCH ×3 (08:00→17:42)
[2022-10-29] MEDS: Aspirin 81 MG Tab.EC PO SCH (08:01)
[2022-10-29] MEDS: Ferrous Sulfate 325 MG Tab PO SCH (08:01)
[2022-10-29] MEDS: Acetaminophen 500 MG Tab PO SCH ×2 (08:03→20:04)
[2022-10-29] MEDS: Enoxaparin 40 MG/0.4 ML Syringe SUBCUT SCH (08:04)
[2022-10-29] MEDS: Polyethylene Glycol 3350 Powder 510 GM Bot PO SCH (08:04)
[2022-10-29] MEDS: Magnesium Oxide 400 MG Tab PO SCH ×3 (08:05→17:42)
[2022-10-29] MEDS: Loperamide 2 MG Tab PO PRN (12:52)
[2022-10-30] MEDS: Ferrous Sulfate 325 MG Tab PO SCH (08:13)
[2022-10-30] MEDS: Amylase/Lipase/Protease 12,000 Unit Cap.CR PO SCH ×3 (08:13→17:19)
[2022-10-30] MEDS: metFORMIN 500 MG Tab PO SCH ×2 (08:14→17:18)
[2022-10-30] MEDS: Aspirin 81 MG Tab.EC PO SCH (08:14)
[2022-10-30] MEDS: Magnesium Oxide 400 MG Tab PO SCH ×3 (08:15→17:19)
[2022-10-30] MEDS: Enoxaparin 40 MG/0.4 ML Syringe SUBCUT SCH (08:15)
[2022-10-30] MEDS: Omeprazole 20 MG Cap.CR PO SCH (08:16)
[2022-10-30] MEDS: Polyethylene Glycol 3350 Powder 510 GM Bot PO SCH (08:16)
[2022-10-30] MEDS: Acetaminophen 500 MG Tab PO SCH ×2 (08:17→19:56)
[2022-10-30] MEDS: Levothyroxine 50 MCG Tab PO SCH (08:19)
[2022-10-30] MEDS: Loperamide 2 MG Tab PO PRN (13:14)
[2022-10-30] MEDS: oxyCODONE 5 MG Tab PO PRN (22:32)
[2022-10-31] MEDS: metFORMIN 500 MG Tab PO SCH ×2 (08:21→17:28)
[2022-10-31] MEDS: Omeprazole 20 MG Cap.CR PO SCH (08:22)
[2022-10-31] MEDS: Levothyroxine 50 MCG Tab PO SCH (08:22)
[2022-10-31] MEDS: Amylase/Lipase/Protease 12,000 Unit Cap.CR PO SCH ×3 (08:23→17:29)
[2022-10-31] MEDS: Aspirin 81 MG Tab.EC PO SCH (08:24)
[2022-10-31] MEDS: Enoxaparin 40 MG/0.4 ML Syringe SUBCUT SCH (08:24)
[2022-10-31] MEDS: Polyethylene Glycol 3350 Powder 510 GM Bot PO SCH (08:25)
[2022-10-31] MEDS: Acetaminophen 500 MG Tab PO SCH ×2 (08:25→20:23)
[2022-10-31] MEDS: Ferrous Sulfate 325 MG Tab PO SCH (08:25)
[2022-10-31] MEDS: Magnesium Oxide 400 MG Tab PO SCH ×3 (08:25→17:30)
[2022-10-31] MEDS: Loperamide 2 MG Tab PO PRN (12:06)
[2022-11-01] MEDS: oxyCODONE 5 MG Tab PO PRN ×2 (02:09→17:52)
[2022-11-01] MEDS: Ferrous Sulfate 325 MG Tab PO SCH (07:24)
[2022-11-01] MEDS: Amylase/Lipase/Protease 12,000 Unit Cap.CR PO SCH ×3 (07:24→17:05)
[2022-11-01] MEDS: metFORMIN 500 MG Tab PO SCH ×2 (07:25→17:06)
[2022-11-01] MEDS: Aspirin 81 MG Tab.EC PO SCH (07:25)
[2022-11-01] MEDS: Magnesium Oxide 400 MG Tab PO SCH ×3 (07:26→17:07)
[2022-11-01] MEDS: Enoxaparin 40 MG/0.4 ML Syringe SUBCUT SCH (07:26)
[2022-11-01] MEDS: Omeprazole 20 MG Cap.CR PO SCH (07:27)
[2022-11-01] MEDS: Levothyroxine 50 MCG Tab PO SCH (07:27)
[2022-11-01] MEDS: Acetaminophen 500 MG Tab PO SCH ×2 (07:28→19:41)
[2022-11-01] MEDS: Polyethylene Glycol 3350 Powder 510 GM Bot PO SCH (07:35)
[2022-11-02] MEDS: Ferrous Sulfate 325 MG Tab PO SCH (07:48)
[2022-11-02] MEDS: metFORMIN 500 MG Tab PO SCH ×2 (07:48→17:16)
[2022-11-02] MEDS: Amylase/Lipase/Protease 12,000 Unit Cap.CR PO SCH ×3 (07:48→17:16)
[2022-11-02] MEDS: Magnesium Oxide 400 MG Tab PO SCH ×3 (07:49→17:17)
[2022-11-02] MEDS: Aspirin 81 MG Tab.EC PO SCH (07:49)
[2022-11-02] MEDS: Enoxaparin 40 MG/0.4 ML Syringe SUBCUT SCH (07:49)
[2022-11-02] MEDS: Levothyroxine 50 MCG Tab PO SCH (07:50)
[2022-11-02] MEDS: Polyethylene Glycol 3350 Powder 510 GM Bot PO SCH (07:50)
[2022-11-02] MEDS: Omeprazole 20 MG Cap.CR PO SCH (07:50)
[2022-11-02] MEDS: Acetaminophen 500 MG Tab PO SCH ×2 (07:51→19:29)
[2022-11-02] MEDS: Loperamide 2 MG Tab PO PRN (13:33)
[2022-11-03] MEDS: Ferrous Sulfate 325 MG Tab PO SCH (07:04)
[2022-11-03] MEDS: Amylase/Lipase/Protease 12,000 Unit Cap.CR PO SCH ×2 (07:04→11:16)
[2022-11-03] MEDS: metFORMIN 500 MG Tab PO SCH (07:05)
[2022-11-03] MEDS: Enoxaparin 40 MG/0.4 ML Syringe SUBCUT SCH (07:05)
[2022-11-03] MEDS: Aspirin 81 MG Tab.EC PO SCH (07:05)
[2022-11-03] MEDS: Magnesium Oxide 400 MG Tab PO SCH ×2 (07:06→11:16)
[2022-11-03] MEDS: Omeprazole 20 MG Cap.CR PO SCH (07:07)
[2022-11-03] MEDS: Levothyroxine 50 MCG Tab PO SCH (07:07)
[2022-11-03] MEDS: Polyethylene Glycol 3350 Powder 510 GM Bot PO SCH (07:07)
[2022-11-03] MEDS: Acetaminophen 500 MG Tab PO SCH (07:08)
[2022-11-03] MEDS: Loperamide 2 MG Tab PO PRN (07:09)
[2022-11-03 09:44] VITALS: BP 110/54; PULSE 79
== END 2022-11-03 15:00 | disposition home or self-care (01) | DRG 561 ==
LOC: LL.MS 13:00 → LL.SWG 10-15 10:01
PROVIDERS: ADMIT Emergency Medicine; ATTEND Emergency Medicine
DX: S32.591D Other specified fracture of right pubis, subsequent encounter for fracture with routine healing (principal); S32.41 Fracture of anterior wall of acetabulum; S32.10XD Unspecified fracture of sacrum, subsequent encounter for fracture with routine healing; S32.414D Nondisplaced fracture of anterior wall of right acetabulum, subsequent encounter for fracture with routine healing; E11.9 Type 2 diabetes mellitus without complications; E78.5 Hyperlipidemia, unspecified; I11.0 Hypertensive heart disease with heart failure; I50.9 Heart failure, unspecified; J44.9 Chronic obstructive pulmonary disease, unspecified; E03.9 Hypothyroidism, unspecified; M19.90 Unspecified osteoarthritis, unspecified site; G89.29 Other chronic pain; M54.9 Dorsalgia, unspecified; M10.9 Gout, unspecified; M81.0 Age-related osteoporosis without current pathological fracture; E11.42 Type 2 diabetes mellitus with diabetic polyneuropathy; D69.6 Thrombocytopenia, unspecified; Z79.899 Other long term (current) drug therapy; Z95.0 Presence of cardiac pacemaker; Z79.84 Long term (current) use of oral hypoglycemic drugs; Z79.890 Hormone replacement therapy; Z86.010 Personal history of colon polyps; Z98.890 Other specified postprocedural states; Z90.49 Acquired absence of other specified parts of digestive tract
CPT/HCPCS: 82947; 97110-GO; 97110-GP; 97116-GP; 97162-GP; 97165-GO; 97530-GO; 97530-GP; 97535-GO; A9270-GY; J1650